=== PATIENT | male | born 1940 | race Caucasian/White ===

== ENCOUNTER 2016-11-09 22:35 | Inpatient (IN) | payer MEDICARE ==
[~2016-11-09] VITALS: Ht 177.8 cm; Wt 42.4 kg
[2016-11-09 22:35] VITALS: BP 117/63
[~2016-11-09 22:35] MED LIST: ALBUTEROL2 PUFFS/17 IN; VICODIN 5/500 T1 TAB PO
--- OUTSIDE RECORDS SUMMARY | 2016-11-09 22:46 | External Medical Summary Rpt ---
Author Author , Organization [employer] Address Unknown Phone Unavailable Purpose Continuity of Care Document - through 2016
--- OUTSIDE RECORDS SUMMARY | 2016-11-09 22:46 | External Medical Summary Rpt ---
Demographics Preferred Language Turkish Marital Status Unknown Muslim Affiliation Unknown Race Unknown Ethnic Group Unknown Author Author , Organization [employer] Address Unknown Phone Unavailable Purpose Continuity of Care Document - through 2016 Immunization No patient found.
--- OUTSIDE RECORDS SUMMARY | 2016-11-09 22:46 | External Medical Summary Rpt ---
Demographics Preferred Language Slovak Marital Status Unknown Episcopalian Affiliation Unknown Race Unknown Ethnic Group Unknown Author Author , Organization [employer] Address Unknown Phone Unavailable Purpose Continuity of Care Document - through 2016 Immunization No patient found.
[2016-11-09] MEDS ORDERED: FOLIC ACID 1MG T1 MG PO (22:47)
--- NOTE | 2016-11-09 23:04 | Emergency Room Report ---
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 " PT'S DAUGHTER RPTS PT "JUST WOKE UP ALL OF A SUDDEN AND COULDN'T SEE." DAUGHTER STS "HE FALLS ALL THE TIME, SOMEONE HAS TO HELP HIM WALK. AND HE'S USING THE BATHROOM IN HIS PANTS." PT WAS SEEN BY DR KINGSLEY 2 WEEKS AGO FOR COLD LIKE SYMPTOMS. PT A & o X 4 UPON ARRIVAL TO ED. PT DENIES PAIN. 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 N Clinical Suspician of Infection? N Mental Status: 1 - Regular (Normal Baseline) Sepsis Risk:Low Sepsis Risk Have you (or family members/close friends) recently traveled outside the [place]? N If Yes, where/when: Have you had exposure to infectious disease within the past month? N TB? Other? Specify: Source patient, RN notes reviewed, family, EMS, old records Exam Limitations no limitations Comment pt with hx of multiple falls with progressive weakness and dec po intake with no fever or rash - he has chronic visual changes rt eye Cardiac Chest Pain Chest pain indicative of cardiac No Timing/Duration this evening Severity moderate ALLERGIES Coded Allergies: Penicillins (Mild, 02/04/16) Home Medications Reported Medications FOLIC ACID (Folic Acid) 1 MG PO DAILY History Medical History General CAD? No Angina: No IN: No Hypertension? No Hyperlipidemia? No CHF? No DVT? No PE? No COPD? No Asthma? No Anemia? No GERD? No Gastric ulcers? No GI Bleed? No Hernia? No Thyroid Problems? No Hypothyroidism? No CVA? No Seizures? No Diabetes? No Renal Insuffiency? No End Stage Renal Disease? No UTI? No Stones? No BPH? No GB Disease: No Nephritic Syndrome? No Asplenia? No Hepatitis? No Sickle Cell Disease? No Arthritis? No Migraines? No Cataracts? No Glaucoma? No MRSA? No HIV? No TB? No Anxiety? No Depression? No Cancer? No More? Yes Additional hx: ETOH DEPENDANCE - BEER Immunization Hx DT/Tetanus > 10 YRS Surgical Hx Previous Surgery?Y CATARACT RIGHT EYE Social History Smoking Hx Smoker: Former Smoker Tobacco: No Packs/day < 1 Pack Alcohol Alcohol: Yes Drugs none Review of Systems All Other Systems Reviewed and Negative Constitutional denies fever Eyes see HPI, vision change, denies drainage ENT denies: ear pain, epistaxis, throat pain. Respiratory denies cough, denies shortness of breath, denies wheezing Cardiovascular denies chest pain, denies syncope Gastrointestinal denies abdominal pain, denies diarrhea, denies vomiting Genitourinary denies: dysuria, frequency, hesitancy, hematuria. Musculoskeletal see HPI, denies back pain, denies joint pain, denies neck pain, other Skin denies rash Psychiatric/Neurological see HPI, denies headache, denies seizure, weakness Physical Exam Vital Signs Vital Signs Date Time Temp Pulse Resp B/P Pulse O2 O2 Flow FiO2 Ox Delivery Rate 11/10 0036 98.2 70 18 112/63 100 11/09 2235 98.2 76 16 117/63 98 - WBC >12,000 or <4,000 or 10% bands? 2 or more SIRS Criteria Met? B/P:112/63 MAP:81 Creatinine >2.0? UA output<0.5ml/kg/hr for 2 hrs? Platelet count >100,000? Lactate >2.0mmol/1? INR >1.2 or PTT > than 60 sec? Evidence of Organ Dysfunction? Provider documented clinical suspician of infection? N Sepsis Criteria Count: 0 Sepsis Risk: Low Sepsis Risk General Appearance no apparent distress Eye Exam Comment chronic changes rt eye and corneal ulcer lt eye Ear, Nose, Throat dry mm Neck non-tender Respiratory Status No: respiratory distress. Lung Sounds bilateral: decreased breath sounds. Cardiovascular regular rate/rhythm, systolic murmur Peripheral Pulses Pulses normal No Gastrointestinal soft Back no skin breakdown Extremities normal inspection, pelvis stable Strength 3 Lower Ext (L), 3 Lower Ext (R), 4 Upper Ext (L), 4 Upper Ext (R) Rectal normal rectal tone, abn prostate Nurse present during exam? Yes Neurologic alert, night manager II-XII nml as tested, no motor/sensory deficits Reflexes Reflexes normal No Mental status normal mood/affect Skin intact Lymphatic no adenopathy Medical Decision Making LABS/Meds/Orders Pt receiving controlled substance in ED? No Results/Orders Laboratory Tests 11/10/16 0031: Urine Color YELLOW, Urine Appearance CLEAR, Urine pH 6.0, Ur Specific [place] 1.015, Urine Protein TRACE H, Urine Ketones 1+ H, Urine Blood TRACE-INTACT, Urine Nitrate NEGATIVE, Urine Bilirubin NEGATIVE, Urine Urobilinogen 1.0, Ur Leukocyte Esterase NEGATIVE, Urine RBC OCC, Urine WBC OCC, Urine Glucose NEGATIVE 11/09/162324: Lactic Acid 0.9 11/09/16 232: Ferritin Pending 11/09/162324: Sodium 114 *L, Potassium 3.4 L, Chloride 82 L, Carbon Dioxide 26, BUN 7, Creatinine 0.8, Estimated Creat Clear 48 L, Estimated GFR (MDRD) 94, Glucose 71 L, Calcium 7.9 L, Total Bilirubin 1.2 H, AST 123 H, ALT 83 H, Alkaline Phosphatase 111, Creatine Kinase 102, CK-MB (CK-2) Rel Index 1.7, CK and CKMB Interp 1.7, Troponin I 0.02, Total Protein 7.1, Albumin 2.8 L, Globulin 4.3 H, Albumin/Globulin Ratio 0.7 L, WBC 2.7 L, RBC 2.39 L, Hgb 8.3 L, Hct 23.8 *L, MCV 99.8 H, RDW 13.7, Plt Count 67 L, MPV 7.4, Gran % 61.9, Gran # 1.7, Total Counted 100, Lymphocytes % 25.4, Monocytes % 6.7, Eosinophils % 5.6, Basophils % 0.5, Neutrophils 67, Band Neutrophils 5, Lymphocytes (Manual) 27, Lymphocytes # 0.7, Monocytes # 0.2, Eosinophils # 0.2, Eosinophils # (Manual) 1, Basophils # 0.0, Platelet Estimate MOD DECREASE, Macrocytosis 1+, Rouleaux 3+, PUBS MCHC 34.7, ESR 63 H, MCH 34.7 H Current Medication Orders Sig/Lorna Start time Last Medication Dose Route Stop Time Status Admin Sodium Chloride 10 ML PRN PRN 11/09 2314 AC IV 11/11 2303 Orders Procedure Date/time Status CROSSMATCH 11/10 UNK Active HEPATITIS B PROFILE 11/10 UNK Active DIET-NOTHING BY MOUTH 11/10 B Active STOOL OCCULT BLOOD 11/10 0051 Active BLOOD BANK REQUEST FOR ADMINISTRATIVE SERVICES MANAGER 11/10 0048 Complete FOLIC ACID (FOLATE, SERUM) 11/10 0037 Active FERRITIN 11/10 0037 Active IRON & TIBC 11/10 0037 Active VITAMIN B12 11/10 003 Active TYPE FOR CROSSMATCH 11/10 0036 Active URINARY CATHETER INSERT 11/10 0032 Active DIFFERENTIAL-WBC 11/[address] SINUS (MAX-FACIAL W/O CONT) 11/[address] HEAD W/O CONTRAST 11/[address] SCAN REQ 11/09 230 Active PELVIS AP ONLY 11/09 2304 Active CHEST-AP VIEW ONLY 11/09 230 Active IV SALINE LOCK 11/09 2304 Active CULTURE, BLOOD 11/09 2304 Active URINALYSIS/COMPLETE 11/09 2304 Complete LACTIC ACID 11/09 2304 Complete SED RATE 11/09 230 Complete COMPLETE METABOLIC PANEL 11/09 2304 Complete CBC WITH AUTO DIFF 11/09 2304 Complete CARDIAC ENZYMES 11/09 230 Complete XRAY/CT/US XRAY/CT/US 1 XRAY chest, pelvis XR interpretation by reviewed by me Xray Results abnormal XRAY/CT/US 2 CT head, sinus CT interpretation by discussed w/radiologist Time results known: 0113 CT Results no fracture seen, abnormal Departure Departure Time of Disposition 011 Disposition Still a Patient Clinical Impression Primary Impression: Hyponatremia Secondary Impressions: Anemia Qualifiers: Anemia type: unspecified type Qualified Code: D64.9 - Anemia, unspecified Leukopenia Qualifiers: Leukopenia type: unspecified Qualified Code: D72.819 - Decreased white blood cell count, unspecified Thrombocytopenia Condition STABLE Referrals Grzegorz Coulter MD discussed with dr coulter ED Critical Care Critical Care Yes Time spent 30-74 min Vital system(s) involved: metabolic I was present at bedside for Coordinating pt's care, Reviewing lab results, Reviewing old records, Discussing pt condition, For re-examinations at 0117
[2016-11-09 23:37] LABS: LYMPH # 0.7 K/mm3 (0.7-4.5); LYMPH % 25.4 % (10-50)
[2016-11-09 23:55] LABS: NEUTROPHILS 67 % (42-76)
[2016-11-10] VITALS (25 sets, daily range): BP systolic 91–124; BP diastolic 42–64
[2016-11-10 00:12] LABS: HEMOGLOBIN 8.3 g/dL (14.1-18.0)
[2016-11-10 00:39] LABS: URINE BLOOD TRACE-INTACT (NEG)
[2016-11-10 00:41] LABS: URINE BILIRUBIN - DIPSTICK NEGATIVE (NEG)
--- OUTSIDE RECORDS SUMMARY | 2016-11-10 01:15 | External Medical Summary Rpt ---
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 Please try again later.
--- OUTSIDE RECORDS SUMMARY | 2016-11-10 01:15 | External Medical Summary Rpt ---
Demographics Preferred Language Sami Marital Status Unknown Faith Affiliation Unknown Race Unknown Ethnic Group Unknown Author Author , Organization [employer] Address Unknown Phone Unavailable Purpose Continuity of Care Document - through 2016 Immunization Unable to retrieve immunization data due to connection failure with Immunization Registry. Please try again later.
[2016-11-10 01:41] LABS: STOOL OCCULT BLOOD NEGATIVE (NEG)
[2016-11-10 04:09] LABS: ABO BLOOD TYPE O; RH BLOOD TYPE POSITIVE
[2016-11-10 04:10] LABS: ANTIHUMAN GLOB CROSSMATCH COMPAT
[2016-11-10 06:58] LABS: LYMPH # 0.6 K/mm3 (0.7-4.5)
--- NOTE | 2016-11-10 07:13 | RADIOLOGY REPORT PS360 ---
CT SINUS (MAX-FACIAL W/O CONT) Ordering Physician: Grzegorz Box MD Patient Age: 76 years: Male HISTORY: PAIN facial pain right pain swelling. Loss of vision TECHNIQUE: Helical CT scanning performed through the facial bones with sagittal coronal reconstructions on CT workstation FINDINGS . There is right periorbital swelling and edema. Either from trauma or possibly a possibly cellulitis evaluate history and clear.. Looking further into history there is been a recent cataract surgery right The soft tissue edema overlies the anterior aspect of right globe. It appears mainly preseptal, although inferior margin there seems to be some slight additional extension of this soft tissue density/inflammation question possible slightly post septal as seen on axial slice sagittal slice 19,-18 correlation with procedure history required. Although the soft tissue density wraps along the inferior margin of the globe, it continues to remain extraconal.Requires ophthalmology evaluation. If symptoms persist or progress, or if there is abnormal drainage consider follow-up postcontrast study.. The venous structure just above the optic nerve is slightly more generous. The superior ophthalmic vein however itself on right appears symmetric. Adjacent right ethmoid air cells appear clear. Lamina papyracea are intact on right. A left there is mild to moderate mucosal thickening at 8 mid left ethmoid air cell reflecting some mild inflammatory changes here. The sphenoid sinus appears normal. Frontal sinuses clear unremarkable. Maxillary sinuses. The right maxillary sinus with only scant 2 mm mucosal thickening inferiorly. Left maxillary sinus with mild mucosal thickening measuring up to 3 mm there is also a dome-shaped area of mucosal thickening likely retention cyst along the lateral wall of measuring over 18 mm at its base and bulging inward 10 mm. Again likely retention cyst . The facial bones intact with no fractures the nasal bone and irregularity most likely reflecting old fracture. Patient nearly edentulous. There is periapical lucency about the remaining lower tooth Prominent degenerative changes right left TMJ yield some erosive changes of both condyles. Early arthritic changes upper C-spine- Primarily Degenerative facet changes. Mastoid air cells well-developed. IACs unremarkable. Middle ear clear. Cerumen at the right external canal note: This study was dictated with a voice-recognition system. There may be typographical error is related to such. If they are significant please notify us for corrections ......... IMPRESSION: 1. Mild diffuse soft tissue swelling overlying the right globe. Right periorbital swelling/edema Although in part may recent cataract surgery, question & suspect possible mild cellulitis.-Mainly preseptal but I would note that there may be an area of slight extension posteriorly septum inferiorly on the sagittal images where this density, & inflammation wraps along the globe inferiorly.. (However this remains extraconal). Sagittal slice 18 , 19 Warrants ophthalmology follow-up. Correlation 2. Mild mucosal thickening left ethmoid air cells. Right ethmoid air cells remain clear with no remarkable inflammatory changes.. Maxillary sinuses. Mild chronic mucosal thickening at inferior maxillary sinuses bilaterally with also moderate size retention cyst lateral left maxillary sinus incidentally noted 3. Mild irregularity of nasal bone most likely reflecting a old fracture, injury
--- NOTE | 2016-11-10 07:20 | PHARMACY CLINIC NOTE ---
Patient Demographics Patient Demographics Admission date: 11/10/16 Date: 11/10/16 Time: 0719 Allergies Coded Allergies: Penicillins (Mild, 02/04/16) HEIGHT- FT: 5 IN: 10.00 K.439 VTE General Information Labs: Laboratory Tests 11/09 2325 Hematology Hgb (14.1 - 18.0 g/dL) 8.3 L Hct (42.0 - 52.0 %) 23.8 *L Plt Count (142 - 424 K/mm3) 67 L Disclaimer The following section includes nursing documentation that has been pulled in for pharmacy review. Patient's VTE score: 2 Patient's VTE Risk: VERY LOW RISK Clinical trial participant? No VTE prophylaxis NQF [id number] VTE prophylaxis ordered? Yes Type of prophylaxis/treatment: ATIF at 0719
[2016-11-10 07:22] LABS: HEMOGLOBIN 7.7 g/dL (14.1-18.0)
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
--- NOTE | 2016-11-10 13:16 | RADIOLOGY REPORT PS360 ---
CT ABD PELVIS W/ CONTRAST Ordering Physician: Helio Espinosa Age: 76 years: Male HISTORY: WEIGHT LOSS,HYPONATREMIA,AND ANEMIA TECHNIQUE: Helical CT scans abdomen and pelvis following 75 cc [id number] 70. Sagittal & coronal reconstructions on CT workstation COMPARISON is made to previous CT abdomen pelvis March 2014 FINDINGS . Very Thin patient\with progressive weight loss since 2014 CT Lower thorax. Lung bases hyperexpanded COPD but lungs clear... Heart normal size. Liver:: diffuse fatty changes. No focal lesions. Gallbladder: generous size but not tense or significant distended.. . No wall thickening. The sac Spleen.: Normal size. Unremarkable. Adrenals: satisfactory. Kidneys normal no obstruction. No calculi and Pancreas.: No mass. No ductal dilatation No retroperitoneal nor pelvic nor mesenteric nor inguinal adenopathy. Minor dilatation lower most abdominal aorta just above the bifurcation where it it measures up to 20 5. Nearly 24 mm AP 20 mm wide. SMA widely patent. Moderate calcified plaque at origin of celiac artery Pelvis.. Diffuse prominent wall thickening urinary bladder . Either reflecting cystitis or bladder wall hypertrophy. Prostate is not particularly enlarged.. Casey catheter in place . Air within the bladder most likely iatrogenic from catheter placement No free fluid at pelvis Large bowel. Prominent stool seen at rectum Generous gas at the transverse colon. Liquid stool from contrast seen at right colon terminal ileum satisfactory. Upper normal wall thickness at cecum and toward right colon may reflect this likely distention. Appendix is not discretely visualized but I see no No evidence of appendicitis\ Small bowel unremarkable Stomach unremarkable. Osseous no lesions Degenerative disc changes multiple levels lumbar spine with facet hypertrophy.. Degenerative changes SI joints and hips IMPRESSION: 1. No acute findings in the abdomen or pelvis. . No mass nor adenopathy abdomen or pelvis. 2. Prominent diffuse wall thickening of the bladder. Air/gas in the bladder likely related to Casey catheter placement. . 2. Other observations: ..Upper normal wall thickness cecum & right colon, however may reflect lack of distention ...Patient Very thin, with progressive weight loss evident versus 2014 CT ...Diffuse. Fatty changes liver .. Generous stool rectum ... Mild dilatation lower abdominal aorta measures up to 2.4 cm.
--- NOTE | 2016-11-10 14:12 | RADIOLOGY REPORT PS360 ---
CT CHEST W/ CONTRAST Ordering Physician: Grzegorz Box MD Patient Age: 76 years: Male HISTORY: WEIGHT LOSS,HYPONATREMIA,AND ANEMIA TECHNIQUE: COMPARISON made to previous CT chest March 2014 FINDINGS thin patient progressive weight loss since 2013.. No axillary adenopathy. Hyperexpansion. COPD residual emphysematous changes. Lung aguila No mass or significant pulmonary nodule is seen within the either right or left lung There is slight additional interstitial coarsening which could reflect some mild postinflammatory changes versus minimal, subtle resolving infiltrate at the right infrahilar region... No pleural lesion or mass. Mediastinum. Scattered small reactive nodes but No significant mediastinal adenopathy. No mediastinal mass. Heart normal size. IMPRESSION: Prominent COPD. Emphysematous changes again evident. No lung mass or left lung lesion. No mediastinal mass or significant adenopathy. No pleural mass or lesion. Subtle additional interstitial coarsening right infrahilar region-most likely reflects mild postinflammatory changes which have developed since 2013. Favor chronic changes, Less likely resolving minimal recent infiltrate... Thin patient.
--- NOTE | 2016-11-10 15:24 | RADIOLOGY REPORT PS360 ---
CHEST-AP VIEW ONLY COMPARISON: PA and lateral chest 04/03/2014 HISTORY: Shortness of breath TECHNIQUE: AP upright chest FINDINGS: There is moderate hyperexpansion of the lung aguila. See no definite pneumonic infiltrate. Cardiac size is normal and the vascularity is normal. IMPRESSION: Moderate COPD, no acute chest pathology noted
--- NOTE | 2016-11-10 16:42 | RADIOLOGY REPORT PS360 ---
PELVIS AP ONLY COMPARISON: AP pelvis 06/28/2007 HISTORY: Pelvic pain TECHNIQUE: AP pelvis FINDINGS: The iliac bones and pubic bones appear intact. There is somewhat hazy opacity in the central pelvis probably due to urinary bladder distention. Is mild asymmetric joint space narrowing of the right hip. Both hips are normally articulated with no evidence of fracture. The SI joints and symphysis pubis per normal. IMPRESSION: Mild osteoarthritis right hip, AP pelvis negative for fracture
[2016-11-10 20:25] LABS: HEMOGLOBIN 10.1 g/dL (14.1-18.0)
[2016-11-11 04:11] VITALS: BP 128/60
[2016-11-11 06:32] LABS: HEMOGLOBIN 9.9 g/dL (14.1-18.0); LYMPH # 0.6 K/mm3 (0.7-4.5); LYMPH % 24.7 % (10-50)
[2016-11-11 07:42] VITALS: BP 100/55
[2016-11-11 07:44] LABS: HBsAg Screen Negative (Negative); Hep A Ab, IgM Negative (Negative); Hep B Core Ab, IgM Negative (Negative); Hep C Virus Ab <0.1 (0.0-0.9)
[2016-11-11 07:53] LABS: NEUTROPHILS 61 % (42-76)
--- NOTE | 2016-11-11 08:17 | ACUTE CARE PROGRESS NOTE (QUA) ---
Progress Notes Subjective Date 11/11/16 Time 0730 Note Patient is resting in bed. He has no complaints of pain or discomfort this morning. His significant other is at bedside. He is consuming very little of his meals; however he is drinking some ensure. Alert and oriented 3. He is thin and emaciated. Rate and rhythm regular. Pulses 2+. No lower extremity edema. Lung sounds clear and equal throughout. Abdomen is soft and extremely thin with no tenderness and normoactive bowel sounds Patient/family reports: feeling better Nursing reports: no complaints Objective Findings Last VS-Temp:98.5 B/P:100/55 Pulse:76 Resp:20 SaO2:97 ROOM AIR Last weight lbs:93 oz:9 K.439 Method:Bed Scales Reviewed: medications, vital signs, lab results, radiology report Assessment/Plan Problem List 1. Hyponatremia Assessment/Plan: Sodium improved at 123. Continue normal saline. Recheck BMP in the a.m. 2. Anemia Assessment/Plan: Anemia has improved with transfusion, H/H 9.03/26 this morning. Qualifiers: Anemia type: unspecified type Qualified Code: D64.9 - Anemia, unspecified 3. Leukopenia Assessment/Plan: White count noted at 2.3 Qualifiers: Leukopenia type: unspecified Qualified Code: D72.819 - Decreased white blood cell count, unspecified 4. Thrombocytopenia Assessment/Plan: Platelets noted at 52 5. Alcohol abuse Assessment/Plan: Patient's significant anemia, leukopenia, thrombocytopenia, and electrolyte abnormalities are likely related to his chronic alcoholism with severe thiamine deficiency. Continue thiamine and multivitamin replacement. Continue ensure with meals. Plan is to discharge home after resolution of electrolyte disturbance under the care of his daughter. Patient condition Improving Plan: continue current care (see above) This inpt stay is expected to cross 2 MNs from start of care Yes at 0817
[2016-11-11 08:50] LABS: PSA, Free 0.6 ng/mL; Prostate Specific Ag 1.9 ng/mL (0.0-4.0)
[2016-11-11 08:53] VITALS: BP 100/55
[2016-11-11 09:37] LABS: Folate (Folic Acid) 4.8 ng/mL (>3.0)
--- NOTE | 2016-11-11 10:15 | CONSULT NOTE ---
Pharmacokinetic Consult Date of consult: 11/11/16 Time of consult: 1013 Referring provider: DR. JOHNSON Reason for consult: VANCOMYCIN DOSING Allergies: Coded Allergies: Penicillins (Mild, 02/04/16) Home Medications: Reported Medications FOLIC ACID (Folic Acid) 1 MG PO DAILY Height (feet): 5 Height (inches): 10.00 Medical History: CAD? No Angina: No [place]: No Hypertension? No Hyperlipidemia? No CHF? No DVT? No PE? No COPD? No Asthma? No Anemia? No GERD? No Gastric ulcers? No GI Bleed? No Hernia? No Thyroid Problems? No Hypothyroidism? No CVA? No Seizures? No Diabetes? No Renal Insuffiency? No UTI? No Stones? No BPH? No GB Disease: No Nephritic Syndrome? No Asplenia? No Hepatitis? No Sickle Cell Disease? No Arthritis? No Migraines? No Cataracts? Yes Glaucoma? No MRSA? No HIV? No TB? No Anxiety? No Depression? No Cancer? No More? Yes Additional hx: ETOH DEPENDANCE - BEER Labs: Laboratory Tests 11/11/16 0620: Sodium 123 L, Potassium 3.2 L, Chloride 90 L, Carbon Dioxide 28, BUN 5 L, Creatinine 0.6 L, Estimated Creat Clear 63, Estimated GFR (MDRD) 131, Glucose 99, Calcium 7.6 L, Total Bilirubin 1.2 H, AST 83 H, ALT 58, Alkaline Phosphatase 86, Total Protein 5.7 L, Albumin 2.3 L, Globulin 3.4 H, Albumin/ Globulin Ratio 0.7 L, WBC 2.3 L, RBC 2.99 L, Hgb 9.9 L, Hct 28.1 L, MCV 94.3, RDW 15.6, Plt Count 52 L, MPV 6.8 L, Gran % 62.0, Gran # 1.5, Total Counted 100, Lymphocytes % 24.7, Monocytes % 9.8 H, Eosinophils % 3.1, Basophils % 0.5, Neutrophils 61, Lymphocytes (Manual) 24, Lymphocytes # 0.6 L, Monocytes (Manual) 9, Monocytes # 0.2, Eosinophils # 0.1, Eosinophils # (Manual) 5 H, Basophils # 0.0, Atypical Lymphocytes 1, Platelet Estimate MARKED DECREASE , Hypochromasia 1+, PUBS MCHC 35.1, MCH 33.1 H 11/10/16 1943: Hgb 10.1 L, Hct 28.8 L Microbiology 11/11 0644 EYE: Eye Culture - ORD Plan: BASED ON PATIENT'S FACTORS, RECOMMEND STARTING WITH VANCOMYCIN 750 MG Q24H AT THIS TIME. PHARMACY WILL FOLLOW DAILY AND ADJUST APPROPRIATE. CALEB BELL, PHARMD at 1019
[2016-11-11 15:39] VITALS: BP 119/67
[2016-11-11 19:23] VITALS: BP 96/59
[2016-11-11 21:03] VITALS: BP 96/59
[2016-11-12 04:00] VITALS: BP 106/50
--- NOTE | 2016-11-12 07:45 | ACUTE CARE PROGRESS NOTE (QUA) ---
Progress Notes Subjective Date 11/12/16 Time 0743 Note Patient is more alert than the last couple of days. Has eaten a fairly good amount of breakfast. He especially likes Jell-O because "Jell-O is good for you." Anterior lung aguila are clear, heart rate regular. Patient to move all extremities. Casey catheter draining clear yellow urine. Blood culture results noted. Objective Findings Last VS-Temp:98.5 B/P:106/50 Pulse:69 Resp:14 SaO2:96 ROOM AIR Last weight lbs:93 oz:9 K.439 Method:Bed Scales Assessment/Plan Problem List 1. Hyponatremia 2. Anemia Qualifiers: Anemia type: unspecified type Qualified Code: D64.9 - Anemia, unspecified 3. Leukopenia Qualifiers: Leukopenia type: unspecified Qualified Code: D72.819 - Decreased white blood cell count, unspecified 4. Thrombocytopenia 5. Alcohol abuse 6. Bacteremia due to Staphylococcus 7. Severe protein-calorie malnutrition Patient condition Improving, patient will require PICC line. Probable swing bed/ extended care placement for treatment of the bacteremia. Overall other issues are improving. Hematology consultation for his pancytopenia. This inpt stay is expected to cross 2 MNs from start of care Yes at 0745
[2016-11-12 08:12] VITALS: BP 111/58
[2016-11-12 11:59] VITALS: BP 111/58
--- NOTE | 2016-11-12 12:15 | RADIOLOGY REPORT PS360 ---
CHEST PORTABLE-PICC PLACEMENT CLINICAL INDICATION: PICC LINE INSERTION ORDERING PHYSICIAN: Grzegorz Box MD PATIENT AGE: 76 years COMPARISON: 11/09/2016 FINDINGS: Interval insertion of left upper extremity PICC line with the tip in region of the superior vena cava. Unremarkable cardiovascular structures. There is slight increased density in the left lung base probably related to atelectatic change. IMPRESSION: Status post PICC line placement with good position of the tip
--- NOTE | 2016-11-12 14:40 | RADIOLOGY REPORT PS360 ---
CT HEAD WITHOUT CONTRAST CT BONE WINDOWS included ORDERING PHYSICIAN : Grzegorz Box MD PATIENT AGE: 76 years GENDER: Male PROCEDURE: Routine axial images head with brain & bone windows HISTORY: PAIN 76-year-old with right I pain for age COMPARISON: No prior head CT available FINDINGS: No acute intracranial findings. Diffuse cerebral atrophy age appropriate. Mild dilatation of the lateral ventricles reflecting the cerebral atrophy. Probable minor chronic small vessel deep white matter changes. No hemorrhage. No mass effect or mass lesion. No subdural nor extra-axial collection. The posterior fossa appear satisfactory and unremarkable. : The skull is intact. Periorbital swelling is noted. Sinuses paranasal will be discussed in separate report . Mastoid air cells, middle ear & IACs are unremarkable. IMPRESSION: No acute intracranial findings. Diffuse Cerebral atrophy. . Mild atrophy cerebellum as well Soft tissue swelling overlying the right globe- may reflect the recent cataract surgery but does raise concern regarding possible developing inflammatory process here. Clinical correlation required. See the CT facial bones study and report from same day.
--- NOTE | 2016-11-12 15:06 | CONSULT NOTE ---
Oncology Clinic F/Up Visit History of present illness: Was asked to see this 76-year-old man who has had a contact with the medical profession for years. Apparently he had a cataract removed a month ago. Her having a hard time finding the records to back this up his significant other states that it was about a month ago. She was admitted because of hyponatremia hypopotassemia and severe anemia. He is a drinker of at least 1-2 sixpacks of beer a day. Apparently over the last several weeks he has had very little to eat or drink other than his beer. On admission his potassium was 3.3 sodium 117 chloride of 83. His hematocrit was 22 with an MCV of 100. He was also noted to have a low white count and a platelet count of 60,000. A CT scan of the orbit of the eye reveals mild diffuse soft tissue swelling in the RIGHT global is also periorbital swelling and edema. Difficult to stated this is related to the surgery that he was supposed to have had. Home medications: Reported Medications FOLIC ACID (Folic Acid) 1 MG PO DAILY Allergies: Coded Allergies: Penicillins (Mild, 02/04/16) Vital signs/Labs: Weight -LB:93 OZ:9 K.439 Method:Bed Scales Height -FT:5 IN:10 CM:177.80 BMI:13.4 Vital Signs Date Time Temp Pulse Resp B/P Pulse O2 O2 Flow FiO2 Ox Delivery Rate 11/12 1159 98.5 67 20 111/58 99 11/12 0812 98.5 67 20 111/58 99 ROOM AIR 11/12 0400 98.5 69 14 106/50 96 ROOM AIR 11/11 2103 98.3 72 18 96/59 98 11/11 1923 98.3 72 18 96/59 98 ROOM AIR 11/11 1539 99.0 72 20 119/67 96 ROOM AIR Laboratory Tests 11/12/16 0630: Sodium 125 L, Potassium 3.1 L, Chloride 94 L, Carbon Dioxide 29, BUN 3 L, Creatinine 0.6 L, Estimated Creat Clear 63, Estimated GFR (MDRD) 131, Glucose 97, Calcium 7.6 L 11/11/16 0620: Sodium 123 L, Potassium 3.2 L, Chloride 90 L, Carbon Dioxide 28, BUN 5 L, Creatinine 0.6 L, Estimated Creat Clear 63, Estimated GFR (MDRD) 131, Glucose 99, Calcium 7.6 L, Total Bilirubin 1.2 H, AST 83 H, ALT 58, Alkaline Phosphatase 86, Total Protein 5.7 L, Albumin 2.3 L, Globulin 3.4 H, Albumin/ Globulin Ratio 0.7 L, WBC 2.3 L, RBC 2.99 L, Hgb 9.9 L, Hct 28.1 L, MCV 94.3, RDW 15.6, Plt Count 52 L, MPV 6.8 L, Gran % 62.0, Gran # 1.5, Total Counted 100, Lymphocytes % 24.7, Monocytes % 9.8 H, Eosinophils % 3.1, Basophils % 0.5, Neutrophils 61, Lymphocytes (Manual) 24, Lymphocytes # 0.6 L, Monocytes (Manual) 9, Monocytes # 0.2, Eosinophils # 0.1, Eosinophils # (Manual) 5 H, Basophils # 0.0, Atypical Lymphocytes 1, Platelet Estimate MARKED DECREASE , Hypochromasia 1+, PUBS MCHC 35.1, MCH 33.1 H 11/10/16 194: Hgb 10.1 L, Hct 28.8 L 11/10/16 0946: [facility] [place] Test Units BLOOD UNIT RELEASE 11/10/16 0625: Sodium 117 L, Potassium 3.3 L, Chloride 83 L, Carbon Dioxide 24, BUN 6 L, Creatinine 0.7 L, Estimated Creat Clear 54, Estimated GFR (MDRD) 110, Glucose 64 L, Calcium 7.9 L, WBC 2.4 L, RBC 2.24 L, Hgb 7.7 *L, Hct 22.4 *L, MCV 100.4 H, RDW 13.6, Plt Count 60 L, MPV 7.4, Gran % 63.7, Gran # 1.5, Lymphocytes % 24.0, Monocytes % 7.0, Eosinophils % 4.9, Basophils % 0.4, Lymphocytes # 0.6 L, Monocytes # 0.2, Eosinophils # 0.1, Basophils # 0.0, PUBS MCHC 34.1, MCH 34.2 H 11/10/1699: Iron (send out) 102, TIBC 122 L, % Saturation 84 H, Unsaturated IBC 20 L, Vitamin B12 1229 H, Folate 4.8 11/10/1699: Ferritin 2801 H, TSH 3.40, Thyroxine (T4) 5.1 11/10/16 0100: Free PSA 0.60, % Free PSA Calc 31.6, Total PSA 1.9, Antibody Screen NEGATIVE, Miscellaneous Test POSITIVE, Hepatitis A IgM Ab Negative, Hep Bs Antigen Negative, Hep B Core IgM Ab Negative, Hepatitis C Antibody <0.1 11/10/16 0048: Stool Occult Blood NEGATIVE 11/10/16 0031: Urine Color YELLOW, Urine Appearance CLEAR, Urine pH 6.0, Ur [place] 1.015, Urine Protein TRACE H, Urine Ketones 1+ H, Urine Blood TRACE-INTACT, Urine Nitrate NEGATIVE, Urine Bilirubin NEGATIVE, Urine Urobilinogen 1.0, Ur Leukocyte Esterase NEGATIVE, Urine RBC OCC, Urine WBC OCC, Urine Glucose NEGATIVE 11/09/162324: Lactic Acid 0.9 11/09/162324: Sodium 114 *L, Potassium 3.4 L, Chloride 82 L, Carbon Dioxide 26, BUN 7, Creatinine 0.8, Estimated Creat Clear 48 L, Estimated GFR (MDRD) 94, Glucose 71 L, Calcium 7.9 L, Total Bilirubin 1.2 H, AST 123 H, ALT 83 H, Alkaline Phosphatase 111, Creatine Kinase 102, CK-MB (CK-2) Rel Index 1.7, CK and CKMB Interp 1.7, Troponin I 0.02, Total Protein 7.1, Albumin 2.8 L, Globulin 4.3 H, Albumin/Globulin Ratio 0.7 L, WBC 2.7 L, RBC 2.39 L, Hgb 8.3 L, Hct 23.8 *L, MCV 99.8 H, RDW 13.7, Plt Count 67 L, MPV 7.4, Gran % 61.9, Gran # 1.7, Total Counted 100, Lymphocytes % 25.4, Monocytes % 6.7, Eosinophils % 5.6, Basophils % 0.5, Neutrophils 67, Band Neutrophils 5, Lymphocytes (Manual) 27, Lymphocytes # 0.7, Monocytes # 0.2, Eosinophils # 0.2, Eosinophils # (Manual) 1, Basophils # 0.0, Platelet Estimate MOD DECREASE, Macrocytosis 1+, Rouleaux 3+, PUBS MCHC 34.7, ESR 63 H, MCH 34.7 H Microbiology Date/Time Procedure - Status Source Growth 11/11 629 Eye Culture - RECD EYE 11/09 2324 Anaerobic Blood Culture - RES BLOOD 11/09 232 Aerobic Blood Culture - RES BLOOD 11/09 232 Anaerobic Blood Culture - RES BLOOD 11/09 232 Aerobic Blood Culture - RES BLOOD Exam: General appearance: try to talk to the patient and he refused to talk to me he would just jose angel sleepiness. attempted to examine him but I could get no more than just the superficial look at him. Assessment Discussion/Summary: I believe his hyponatremia should resolve on its own is when he starts re- radiating with normal fluids uther than beer. As for his profound anemia and also likely cause will be called. Over the same picture and be seen in myelodysplasia. Time will tell which one is which I did speak to his caregiver about a bone marrow biopsy and she said he would not stand for such a thing. I think we can evaluate him in clinic as soon as he gets discharged protect that if he stops drinking his MCV will come down and he will have correction in his platelet count and white count. If it does not return towards normal then the diagnosis of myeloma dysplasia should be then investigated. at 1502
[2016-11-12 16:03] VITALS: BP 103/57
[2016-11-12 19:14] VITALS: BP 98/54
[2016-11-12 21:19] VITALS: BP 98/54
[2016-11-13 03:33] VITALS: BP 126/77
[2016-11-13 08:17] VITALS: BP 133/75
--- NOTE | 2016-11-13 08:20 | PHARMACY CLINIC NOTE ---
Patient Demographics Patient Demographics Admission date: 11/13/16 Date: 11/13/16 Time: 817 Allergies Coded Allergies: Penicillins (Mild, 02/04/16) HEIGHT- FT: 5 IN: 10.00 VTE General Information Disclaimer The following section includes nursing documentation that has been pulled in for pharmacy review. Clinical trial participant? No VTE prophylaxis NQF [id number] VTE prophylaxis ordered? Yes Type of prophylaxis/treatment: ATIF at 0819
[2016-11-13] MEDS ORDERED: NOMEDS XX (08:29)
[2016-11-13 09:33] VITALS: BP 133/75
--- NOTE | 2016-11-13 10:00 | CONSULT NOTE ---
Pharmacokinetic Consult Date of consult: 11/13/16 Time of consult: 957 Referring provider: DR. JOHNSON Reason for consult: VANCOMYCIN TROUGH LEVEL AND DOSE CHANGE Allergies: Coded Allergies: Penicillins (Mild, 02/04/16) Home Medications: Reported Medications No Home Medications (NO HOME MEDICATIONS) 1 EACH XX ONCE Height (feet): 5 Height (inches): 10.00 Medical History: CAD? No Angina: No [place]: No Hypertension? No Hyperlipidemia? No CHF? No DVT? No PE? No COPD? No Asthma? No Anemia? No GERD? No Gastric ulcers? No GI Bleed? No Hernia? No Thyroid Problems? No Hypothyroidism? No CVA? No Seizures? No Diabetes? No Renal Insuffiency? No UTI? No Stones? No BPH? No GB Disease: No Nephritic Syndrome? No Asplenia? No Hepatitis? No Sickle Cell Disease? No Arthritis? No Migraines? No Cataracts? Yes Glaucoma? No MRSA? No HIV? No TB? No Anxiety? No Depression? No Cancer? No More? Yes Additional hx: ETOH DEPENDANCE - BEER Labs: Laboratory Tests 11/13/16 0930: Vancomycin Trough 2.8 L Plan: BASED ON PATIENT'S VANCOMYCIN TROUGH LEVEL OF 2.8 MCG/ML THIS AM, RECOMMEND INCREASING DOSE OF VANCOMYCIN TO 1000 MG Q12H AT THIS TIME. PHARMACY WILL OBTAIN VANCOMYCIN TROUGH LEVEL PRIOR TO DOSE IN THE AM. PHARMACY WILL FOLLOW DAILY AND ADJUST APPROPRIATE. CALEB BELL PHARMD at 1000
--- NOTE | 2016-11-13 14:53 | ACUTE CARE PROGRESS NOTE (QUA) ---
Progress Notes Subjective Date 11/13/16 Time 0745 Note Patient is resting in bed, with [id number] feeding him breakfast. He denies pain or discomfort. Oral intake has improved some since admission. PICC line was placed yesterday, which he tolerated well. Alert and oriented x3. Sclera erythematous with cloudy, scarring bilateral corneas. Purulent drainage, unable to see from either eye. LS clear and equal throughout. Abdomen soft and non-tender. Heart rate and rhythm regular, no edema, pulses 2+. Patient/family reports: feeling better Nursing reports: no complaints Objective Findings Last VS-Temp:97.6 B/P:133/75 Pulse:84 Resp:20 SaO2:98 ROOM AIR Last weight lbs:93 oz:9 K.439 Method:Bed Scales Reviewed: medications, vital signs, lab results, radiology report Assessment/Plan Problem List 1. Hyponatremia Assessment/Plan: Improving. Na 125 today. Will continue normal saline infusions and repeat BMP in the am. 2. Anemia Assessment/Plan: Improved. H/H 9.9/28.1 on 11/11. Will repeat CBC in the am. Qualifiers: Anemia type: unspecified type Qualified Code: D64.9 - Anemia, unspecified 3. Leukopenia Assessment/Plan: Dr. Spicer consulted yesterday who agrees pancytopenia is likely related to bone marrow suppression from chronic ETOH use. Qualifiers: Leukopenia type: unspecified Qualified Code: D72.819 - Decreased white blood cell count, unspecified 4. Thrombocytopenia Assessment/Plan: See above 5. Alcohol abuse Assessment/Plan: Continue thiamine. 6. Bacteremia due to Staphylococcus 7. Severe protein-calorie malnutrition Assessment/Plan: Boost with meals. Continue to assist with feedings. 8. Vision loss, bilateral Assessment/Plan: Vision loss is the result of infection with possible abscess behind right eye. Offered transfer to [facility] for ophthalmology consult; although I do not believe they will do anything different in his care. Continue IV antibiotics. Continue erythromycin ophthalmic ointment. Add viroptic for herpes coverage. Will consult Dr. Dean. Patient condition Improving This inpt stay is expected to cross 2 MNs from start of care Yes at 0107
--- NOTE | 2016-11-13 14:53 | ACUTE CARE PROGRESS NOTE (QUA) ---
Progress Notes Subjective Date 11/13/16 Time 0745 Note Patient is resting in bed, with [id number] feeding him breakfast. He denies pain or discomfort. Oral intake has improved some since admission. PICC line was placed yesterday, which he tolerated well. Alert and oriented x3. Sclera erythematous with cloudy, scarring bilateral corneas. Purulent drainage, unable to see from either eye. LS clear and equal throughout. Abdomen soft and non-tender. Heart rate and rhythm regular, no edema, pulses 2+. Patient/family reports: feeling better Nursing reports: no complaints Objective Findings Last VS-Temp:97.6 B/P:133/75 Pulse:84 Resp:20 SaO2:98 ROOM AIR Last weight lbs:93 oz:9 K.439 Method:Bed Scales Reviewed: medications, vital signs, lab results, radiology report Assessment/Plan Problem List 1. Hyponatremia Assessment/Plan: Improving. Na 125 today. Will continue normal saline infusions and repeat BMP in the am. 2. Anemia Assessment/Plan: Improved. H/H 9.9/28.1 on 11/11. Will repeat CBC in the am. Qualifiers: Anemia type: unspecified type Qualified Code: D64.9 - Anemia, unspecified 3. Leukopenia Assessment/Plan: Dr. Spicer consulted yesterday who agrees pancytopenia is likely related to bone marrow suppression from chronic ETOH use. Qualifiers: Leukopenia type: unspecified Qualified Code: D72.819 - Decreased white blood cell count, unspecified 4. Thrombocytopenia Assessment/Plan: See above 5. Alcohol abuse Assessment/Plan: Continue thiamine. 6. Bacteremia due to Staphylococcus 7. Severe protein-calorie malnutrition Assessment/Plan: Boost with meals. Continue to assist with feedings. 8. Vision loss, bilateral Assessment/Plan: Vision loss is the result of infection with possible abscess behind right eye. Offered transfer to [facility] for ophthalmology consult; although I do not believe they will do anything different in his care. Continue IV antibiotics. Continue erythromycin ophthalmic ointment. Add viroptic for herpes coverage. Will consult Dr. Dean. Patient condition Improving This inpt stay is expected to cross 2 MNs from start of care Yes at 3962
[2016-11-13 16:14] VITALS: BP 116/69
[2016-11-13 19:41] VITALS: BP 140/72
[2016-11-13 20:10] VITALS: BP 140/72
[2016-11-14 03:48] VITALS: BP 100/54
[2016-11-14 06:41] LABS: LYMPH # 0.9 K/mm3 (0.7-4.5)
[2016-11-14 06:42] LABS: HEMOGLOBIN 8.6 g/dL (14.1-18.0)
[2016-11-14 07:28] VITALS: BP 122/69
--- NOTE | 2016-11-14 07:49 | ACUTE CARE PROGRESS NOTE (QUA) ---
Progress Notes Subjective Date 11/14/16 Time 0748 Note Patient is alert, oriented 2. His eye drainage is much improved although the scarring over his cornea is still present and patient reports complete loss of visual acuity. Lungs are clear, heart rate regular, abdomen soft, nutritional/hydration status slowly improving. Objective Findings Last VS-Temp:98.5 B/P:122/69 Pulse:74 Resp:20 SaO2:97 ROOM AIR Last weight lbs:93 oz:9 K.439 Method:Bed Scales Assessment/Plan Problem List 1. Hyponatremia 2. Anemia Qualifiers: Anemia type: unspecified type Qualified Code: D64.9 - Anemia, unspecified 3. Leukopenia Qualifiers: Leukopenia type: unspecified Qualified Code: D72.819 - Decreased white blood cell count, unspecified 4. Thrombocytopenia 5. Alcohol abuse 6. Bacteremia due to Staphylococcus 7. Severe protein-calorie malnutrition 8. Vision loss, bilateral 9. Acute infective conjunctivitis Patient condition Improving, await cultures. Continue erythromycin ointment. Add antiviral drops. Also add prednisolone drops to help with inflammation. I am not optimistic about his vision recovering. However overall his infectious status is improving. Will need long-term antibiotics for his staph bloodstream infection. This inpt stay is expected to cross 2 MNs from start of care Yes at 0773
[2016-11-14 10:02] VITALS: BP 122/69
--- NOTE | 2016-11-14 10:43 | CONSULT NOTE ---
Pharmacokinetic Consult Date of consult: 11/14/16 Time of consult: 1042 Referring provider: DR. JOHNSON Reason for consult: VANCOMYCIN TROUGH LEVEL Allergies: Coded Allergies: Penicillins (Mild, 02/04/16) Home Medications: Reported Medications No Home Medications (NO HOME MEDICATIONS) 1 EACH XX ONCE Height (feet): 5 Height (inches): 10.00 Medical History: CAD? No Angina: No [place]: No Hypertension? No Hyperlipidemia? No CHF? No DVT? No PE? No COPD? No Asthma? No Anemia? No GERD? No Gastric ulcers? No GI Bleed? No Hernia? No Thyroid Problems? No Hypothyroidism? No CVA? No Seizures? No Diabetes? No Renal Insuffiency? No UTI? No Stones? No BPH? No GB Disease: No Nephritic Syndrome? No Asplenia? No Hepatitis? No Sickle Cell Disease? No Arthritis? No Migraines? No Cataracts? Yes Glaucoma? No MRSA? No HIV? No TB? No Anxiety? No Depression? No Cancer? No More? Yes Additional hx: ETOH DEPENDANCE - BEER Labs: Laboratory Tests 11/14/16 0950: Vancomycin Trough 10.5 H 11/14/16 0610: Sodium 130 L, Potassium 3.8, Chloride 98, Carbon Dioxide 31, BUN 9, Creatinine 0.6 L, Estimated Creat Clear 63, Estimated GFR (MDRD) 131, Glucose 102, Calcium 7.7 L, WBC 7.6, RBC 2.63 L, Hgb 8.6 L, Hct 25.8 L, MCV 98.1 H, RDW 15.2, Plt Count 97 L, MPV 6.9 L, Gran % 82.4 H, Gran # 6.3, Lymphocytes % 12.0, Monocytes % 5.5, Eosinophils % 0.1, Basophils % 0.0 L, Lymphocytes # 0.9, Monocytes # 0.4, Eosinophils # 0.0, Basophils # 0.0, PUBS MCHC 33.4, MCH 32.7 H Problem List: 1. Bacteremia due to Staphylococcus Plan: BASED ON VANCOMYCIN TROUGH LEVEL AND PATIENT FACTORS, RECOMMEND CONTINUING VANCOMYCIN 1 GM IV Q12H. PHARMACY WILL CONTINUE TO MONITOR AND ADJUST APPROPRIATE. at 1048
[2016-11-14 11:34] VITALS: BP 122/69
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
== END 2016-11-14 11:47 | disposition swing bed (61) | DRG 811 ==
LOC: ER 22:35 → 2ND 11-10 01:11
PROVIDERS: Emergency Medicine; Internal Medicine Adolescent Medicine
PROC: 05HC33Z Insertion of Infusion Device into Left Basilic Vein, Percutaneous Approach (ICD-10-PCS; principal; 2016-11-12)
DX: D64.9 Anemia, unspecified (principal); E43 Unspecified severe protein-calorie malnutrition; R78.81 Bacteremia; D69.6 Thrombocytopenia, unspecified; E87.1 Hypo-osmolality and hyponatremia; B95.7 Other staphylococcus as the cause of diseases classified elsewhere; Z68.1 Body mass index [BMI] 19.9 or less, adult; D61.818 Other pancytopenia; Z91.81 History of falling; H10.023 Other mucopurulent conjunctivitis, bilateral
CPT/HCPCS: C1751; G0328; J3370; P9016; Q9967

== ENCOUNTER 2016-11-14 08:32 | Inpatient (IN) | payer MEDICARE ==
[~2016-11-14] VITALS: Ht 177.8 cm; Wt 53.7 kg
[~2016-11-14 08:32] MED LIST changes: +FOLIC ACID 1MG T1 MG PO; +NOMEDS XX
--- NOTE | 2016-11-14 10:47 | PHARMACY CLINIC NOTE ---
Patient Demographics Patient Demographics Admission date: 11/14/16 Date: 11/14/16 Time: 1047 Allergies Coded Allergies: Penicillins (Mild, 02/04/16) HEIGHT- FT: 5 IN: 10.00 VTE General Information Disclaimer The following section includes nursing documentation that has been pulled in for pharmacy review. VTE prophylaxis NQF [id number] VTE prophylaxis ordered? Yes Type of prophylaxis/treatment: ATIF at 1044
[2016-11-14 12:55] VITALS: BP 117/74
[2016-11-14 14:01] VITALS: BP 117/74
[2016-11-14 20:01] VITALS: BP 140/70
[2016-11-15 07:21] VITALS: BP 137/76
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
[2016-11-15 09:35] VITALS: BP 137/76
[2016-11-15 19:59] VITALS: BP 140/78
[2016-11-16 07:49] VITALS: BP 137/73
[2016-11-16 09:03] VITALS: BP 137/73
[2016-11-16 20:22] VITALS: BP 138/71
[2016-11-17 05:58] LABS: LYMPH # 0.9 K/mm3 (0.7-4.5); LYMPH % 18.5 % (10-50)
[2016-11-17 05:59] LABS: HEMOGLOBIN 9.8 g/dL (14.1-18.0)
[2016-11-17 08:20] VITALS: BP 144/91
[2016-11-17 08:22] VITALS: BP 144/91
--- NOTE | 2016-11-17 10:16 | CONSULT NOTE ---
Pharmacokinetic Consult Date of consult: 11/17/16 Time of consult: 1014 Referring provider: DR. JOHNSON Reason for consult: VANCOMYCIN TROUGH LEVEL Allergies: Coded Allergies: Penicillins (Mild, 02/04/16) Home Medications: Reported Medications No Home Medications (NO HOME MEDICATIONS) 1 EACH XX ONCE Height (feet): 5 Height (inches): 10.00 Medical History: CAD? No Angina: No [place]: No Hypertension? No Hyperlipidemia? No CHF? No DVT? No PE? No COPD? No Asthma? No Anemia? No GERD? No Gastric ulcers? No GI Bleed? No Hernia? No Thyroid Problems? No Hypothyroidism? No CVA? No Seizures? No Diabetes? No Renal Insuffiency? No UTI? No Stones? No BPH? No GB Disease: No Nephritic Syndrome? No Asplenia? No Hepatitis? No Sickle Cell Disease? No Arthritis? No Migraines? No Cataracts? Yes Glaucoma? No MRSA? No HIV? No TB? No Anxiety? No Depression? No Cancer? No More? Yes Additional hx: ETOH DEPENDANCE - BEER Labs: Laboratory Tests 11/17/16 0930: Vancomycin Trough 16.0 H 11/17/16 0535: Sodium 128 L, Potassium 4.6, Chloride 98, Carbon Dioxide 28, BUN 7, Creatinine 0.6 L, Estimated Creat Clear 80, Estimated GFR (MDRD) 131, Glucose 86, Calcium 7.9 L, WBC 5.1, RBC 2.98 L, Hgb 9.8 L, Hct 29.8 L, MCV 100.1 H, RDW 15.6, Plt Count 125 L, MPV 6.7 L, Gran % 67.9, Gran # 3.5, Lymphocytes % 18.5, Monocytes % 6.2, Eosinophils % 6.6, Basophils % 0.8, Lymphocytes # 0.9, Monocytes # 0.3, Eosinophils # 0.3, Basophils # 0.0, PUBS MCHC 32.9, MCH 33.0 H Problem List: 1. Bacteremia due to Staphylococcus Plan: BASED ON VANCOMYCIN TROUGH LEVEL, RECOMMEND CONTINUING VANCOMYCIN 1 GM IV Q12H. PHARMACY WILL CONTINUE TO MONITOR DAILY AND ADJUST APPROPRIATE. at 1015
[2016-11-17 16:20] VITALS: BP 143/75
[2016-11-17 20:02] VITALS: BP 156/88
--- NOTE | 2016-11-18 07:58 | ACUTE CARE PROGRESS NOTE (QUA) ---
Progress Notes Subjective Date 11/18/16 Time 0755 Note No events overnight. Denies pain this morning but has been using tylenol #3 PRN for headache. Slept well last night. Reports still unable to see anything other than shadows. Alert, oriented to person and place and year. Heart with RRR, Lungs CTA. Abdomen soft, NT/ND, BS present. No edema. No eye drainage, right cornea is still cloudy with surrounding erythema. Patient/family reports: feeling better Nursing reports: no complaints Objective Findings Last VS-Temp:97.7 B/P:156/88 Pulse:75 Resp:16 SaO2:97 ROOM AIR Last weight lbs:118 oz:7 [id number] Method:Bed Scales Assessment/Plan Problem List 1. Hyponatremia 2. Anemia 3. Leukopenia 4. Thrombocytopenia 5. Bacteremia due to Staphylococcus 6. Severe protein-calorie malnutrition 7. Vision loss, bilateral 8. Acute infective conjunctivitis 9. Alcohol abuse Patient condition Stable Plan: continue current care This inpt stay is expected to cross 2 MNs from start of care Yes at 0757
[2016-11-18 08:00] VITALS: BP 119/64
[2016-11-18 09:14] VITALS: BP 119/64
[2016-11-18 20:02] VITALS: BP 129/70
[2016-11-19 08:07] VITALS: BP 127/66
[2016-11-19 08:38] VITALS: BP 127/66
[2016-11-19 19:56] VITALS: BP 148/80
[2016-11-20 08:50] VITALS: BP 120/69
[2016-11-20 19:50] VITALS: BP 132/70
--- NOTE | 2016-11-21 07:59 | ACUTE CARE PROGRESS NOTE (QUA) ---
Progress Notes Subjective Date 11/21/16 Time 0730 Note Patient is sitting up in bed eating breakfast with assistance. He reports appetite is improving. He denies any pain or discomfort. Patient further reports he is able to see shadows from left eye, no vision from right eye. Overall, he feels well with no concerns or complaints. Alert and oriented x3. Rate and rhythm regular. No edema. Pulses 2+. Lung sounds clear and equal bilaterally. Abdomen soft and nontender. Right sclera erythematous with scarring noted, no vision. Left mild erythema and minimal scarring, shadows only. Patient/family reports: feeling better Nursing reports: no complaints Objective Findings Last VS-Temp:98.7 B/P:132/70 Pulse:70 Resp:20 SaO2:97 ROOM AIR Last weight lbs:118 oz:7 [id number].723 Method:Bed Scales Reviewed: medications, vital signs, lab results Assessment/Plan Problem List 1. Hyponatremia 2. Anemia 3. Leukopenia 4. Thrombocytopenia 5. Bacteremia due to Staphylococcus 6. Severe protein-calorie malnutrition 7. Vision loss, bilateral 8. Acute infective conjunctivitis 9. Alcohol abuse Patient condition Improving Plan: continue current care, Continue IV antibiotics. Most likely discharge home on Thursday. This inpt stay is expected to cross 2 MNs from start of care Yes at 2558
[2016-11-21 08:00] VITALS: BP 140/73
[2016-11-21 08:30] VITALS: BP 140/73
[2016-11-21 09:49] LABS: HEMOGLOBIN 9.1 g/dL (14.1-18.0); LYMPH # 0.8 K/mm3 (0.7-4.5); LYMPH % 19.5 % (10-50)
--- NOTE | 2016-11-21 10:37 | CONSULT NOTE ---
Pharmacokinetic Consult Date of consult: 11/21/16 Time of consult: 1034 Referring provider: DR. JOHNSON Reason for consult: VANCOMYCIN TROUGH LEVEL Allergies: Coded Allergies: Penicillins (Mild, 02/04/16) Home Medications: Reported Medications No Home Medications (NO HOME MEDICATIONS) 1 EACH XX ONCE Height (feet): 5 Height (inches): 10.00 Medical History: CAD? No Angina: No [place]: No Hypertension? No Hyperlipidemia? No CHF? No DVT? No PE? No COPD? No Asthma? No Anemia? No GERD? No Gastric ulcers? No GI Bleed? No Hernia? No Thyroid Problems? No Hypothyroidism? No CVA? No Seizures? No Diabetes? No Renal Insuffiency? No UTI? No Stones? No BPH? No GB Disease: No Nephritic Syndrome? No Asplenia? No Hepatitis? No Sickle Cell Disease? No Arthritis? No Migraines? No Cataracts? Yes Glaucoma? No MRSA? No HIV? No TB? No Anxiety? No Depression? No Cancer? No More? Yes Additional hx: ETOH DEPENDANCE - BEER Labs: Laboratory Tests 11/21/16 0935: Sodium 122 L, Potassium 3.9, Chloride 91 L, Carbon Dioxide 27, BUN 5 L, Creatinine 0.6 L, Estimated Creat Clear 80, Estimated GFR (MDRD) 131, Glucose 109 H, Calcium 7.5 L, WBC 3.8 L, RBC 2.78 L, Hgb 9.1 L, Hct 27.5 L, MCV 98.8 H, RDW 16.4, Plt Count 168, MPV 6.9 L, Gran % 64.7, Gran # 2.5, Lymphocytes % 19.5, Monocytes % 7.5, Eosinophils % 7.9, Basophils % 0.3, Lymphocytes # 0.8, Monocytes # 0.3, Eosinophils # 0.3, Basophils # 0.0, PUBS MCHC 33.3, MCH 32.9 H, Vancomycin Trough 14.9 H Problem List: 1. Bacteremia due to Staphylococcus Plan: DUE TO PATIENT FACTORS AND VANCOMYCIN TROUGH LEVEL OF 14.9 MG/L, RECOMMEND CONTINUING CURRENT VANCOMYCIN DOSE OF 1 GM IV EVERY 12 HOURS. PHARMACY WILL CONTINUE TO MONITOR AND ADJUST APPROPRIATE. at 1037
[2016-11-21 15:56] VITALS: BP 117/62
[2016-11-21 19:57] VITALS: BP 145/77
[2016-11-22 08:30] VITALS: BP 125/60
[2016-11-22 09:45] VITALS: BP 125/60
[2016-11-22 19:50] VITALS: BP 123/63
[2016-11-23 08:00] VITALS: BP 98/47
[2016-11-23 08:35] VITALS: BP 98/47
[2016-11-23 20:18] VITALS: BP 145/70
[2016-11-24 08:00] VITALS: BP 137/70
[2016-11-24] MEDS ORDERED: THIAMINE HCL100 MG PO (09:13)
[2016-11-24] MEDS ORDERED: PRED FORTE 1% OP5 ML OP (09:13)
[2016-11-24] MEDS ORDERED: ERYTHROMYC3.5 GM/TUB OP (09:13)
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
[2016-11-24 09:30] VITALS: BP 137/70
[2016-11-24 11:30] VITALS: BP 137/70
--- OUTSIDE RECORDS SUMMARY | 2016-11-24 17:21 | External Medical Summary Rpt ---
Demographics Preferred Language Serbian Marital Status Unknown Christianity Affiliation Unknown Race Unknown Ethnic Group Unknown Author Author , Organization [employer] Address Unknown Phone Unavailable Purpose Continuity of Care Document - through 2016 Immunization No patient found.
--- OUTSIDE RECORDS SUMMARY | 2016-11-24 17:21 | External Medical Summary Rpt ---
Demographics Preferred Language Mohawk Marital Status Unknown Sikh Affiliation Unknown Race Unknown Ethnic Group Unknown Author Author , Organization [employer] Address Unknown Phone Unavailable Purpose Continuity of Care Document - through 2016 Immunization No patient found.
--- OUTSIDE RECORDS SUMMARY | 2016-11-24 17:21 | External Medical Summary Rpt ---
Author Author , Organization [employer] Address Unknown Phone Unavailable Purpose Continuity of Care Document - through 2016 Problems Code Diagnosis DOS Provider Status D64.9 ANEMIA, UNSPECIFIED D69.6 THROMBOCYTO PENIA, UNSPECIFIED D72.819 DECREASED WHITE BLOOD CELL COUNT, UNSPECIFIED E87.1 HYPO-OSMOLA LITY AND HYPONATREMI A
== END 2016-11-24 11:24 | disposition home health service (06) | DRG 124 ==
LOC: 2ND 08:32
PROVIDERS: Internal Medicine Adolescent Medicine
DX: H10.023 Other mucopurulent conjunctivitis, bilateral (principal); E43 Unspecified severe protein-calorie malnutrition; D61.818 Other pancytopenia; R78.81 Bacteremia; D69.6 Thrombocytopenia, unspecified; D64.9 Anemia, unspecified; E87.1 Hypo-osmolality and hyponatremia; B95.7 Other staphylococcus as the cause of diseases classified elsewhere; Z68.1 Body mass index [BMI] 19.9 or less, adult; Z91.81 History of falling; F10.20 Alcohol dependence, uncomplicated
CPT/HCPCS: J2405; J3370

== ENCOUNTER 2016-11-28 17:50 | Observation (INO) | payer MEDICARE ==
[~2016-11-28] VITALS: Ht 172.7 cm; Wt 44.0 kg
[~2016-11-28 17:50] MED LIST changes: +ERYTHROMYC3.5 GM/TUB OP; +PRED FORTE 1% OP5 ML OP; +THIAMINE HCL100 MG PO
[2016-11-28 17:53] VITALS: BP 99/53
[2016-11-28] MEDS ORDERED: PREDNISOLO OP (18:00)
--- OUTSIDE RECORDS SUMMARY | 2016-11-28 18:04 | External Medical Summary Rpt ---
Demographics Preferred Language Turkish Marital Status Unknown Scientology Affiliation Unknown Race Unknown Ethnic Group Unknown Author Author , Organization [employer] Address Unknown Phone Unavailable Purpose Continuity of Care Document - through 2016 Immunization No patient found.
--- OUTSIDE RECORDS SUMMARY | 2016-11-28 18:04 | External Medical Summary Rpt ---
Demographics Preferred Language Romanian Marital Status Unknown Gnosticist Affiliation Unknown Race Unknown Ethnic Group Unknown Author Author , Organization [employer] Address Unknown Phone Unavailable Purpose Continuity of Care Document - through 2016 Immunization No patient found.
--- NOTE | 2016-11-28 18:08 | Emergency Room Report ---
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 PT STATES HE WAS TAKING A NAP BEFORE THE AMBULANCE CAME. EMS SAID FAMILY CALLED BECAUSE HE HAD PASSED OUT. 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 N Clinical Suspician of Infection? N Mental Status: 1 - Regular (Normal Baseline) Sepsis Risk:Low Sepsis Risk Have you (or family members/close friends) recently traveled outside the [facility]? N If Yes, where/when: Have you had exposure to infectious disease within the past month? TB? Other? Specify: Patient was outside in the shade today in his wheelchair and his family states he passed out for around 5-10 seconds or so, he wasn't responsive A to come back inside a status blood pressure was 98 they stated that he passed out again about 3-4 more times each time this lasting about 5 seconds but they said that he was not simply sleeping or nodding off that he was unconscious. The patient himself states he has no complaints he denies any pain he states he feels his normal self the family states he is back to his baseline and that he seems to have improved with some fluid that ambulance has running currently. He denies any headache chest pain or abdominal pain denies any symptoms or problems from his perspective. He doesn't really remember the events. He speech is normal now. The family states that one of these episodes he had a little bit of slurred speech but that rapidly went away. Family states he is at his baseline mental status now patient states that he has no complaints all these episodes were very brief in duration lasting around 5 seconds or so. family Stated he was not out in the sun and they don't think he got overheated Comment Chest x-ray read by myself no acute disease no fracture no acute infiltrate ALLERGIES Coded Allergies: Penicillins (Mild, 02/04/16) Home Medications Active Scripts Erythromycin (Erythromycin Ophth Oint 3.5GM Tube) 0.25 GM OP TID #1 % Ref 1 Prov: 11/24/16 THIAMINE HCL (Thiamine HCl) 100 MG PO BID #60 TAB Ref 1 Prov: 11/24/16 PREDNISOLONE ACETATE (Prednisolone Acetate) 2 DROP OP TID #1 BOT Ref 1 Prov: 11/24/16 Reported Medications Prednisolone Acetate (Prednisolone Acet 1% Ophth Soln 5ML) 1 DROP OP TID #5 Discontinued Reported Medications No Home Medications (NO HOME MEDICATIONS) 1 EACH XX ONCE History Medical History General CAD? No Angina: No CO: No Hypertension? No Hyperlipidemia? No CHF? No DVT? No PE? No COPD? No Asthma? No Anemia? No GERD? No Gastric ulcers? No GI Bleed? No Hernia? No Thyroid Problems? No Hypothyroidism? No CVA? No Seizures? No Diabetes? No Renal Insuffiency? No End Stage Renal Disease? No UTI? No Stones? No BPH? No GB Disease: No Nephritic Syndrome? No Asplenia? No Hepatitis? No Sickle Cell Disease? No Arthritis? No Migraines? No Cataracts? Yes Glaucoma? No MRSA? No HIV? No TB? No Anxiety? No Depression? No Cancer? No More? Yes Additional hx: ETOH DEPENDANCE - BEER Immunization Hx DT/Tetanus > 10 YRS Pneumonia Refuses Surgical Hx Previous Surgery?Y CATARACT RIGHT EYE Social History Smoking Hx Smoker: Current Every Day Smoker Tobacco: Yes Type Snuff Packs/day < 1 Pack Alcohol Alcohol: Yes Review of Systems All Other Systems Reviewed and Negative Physical Exam Vital Signs Vital Signs Date Time Temp Pulse Resp B/P Pulse O2 O2 Flow FiO2 Ox Delivery Rate 11/28 1944 77 18 110/56 99 /02 1902 73 18 92/57 99 06/02 1753 71 18 99/53 92 General Appearance: Nontoxic appears cachectic Head: Normocephalic, without obvious abnormality, atraumatic. Eyes: conjunctiva/corneas clear ENT: Mucous membranes moist. Neck: No jugular venous distention. Cardiac: regular rate and rhythm Lungs: Clear to auscultation bilaterally Abdomen: Nontender, Nondistended, positive bowel sounds, no rebound : No CVA tenderness Extremities: no edema Musculoskeletal: No chest wall tenderness Skin: No rashes or lesions to exposed skin. Neurologic: Alert. Alert and oriented Cranial nerves intact chronically blind Strength 5 out of 5 Sensation intact to light touch holds both legs off the bed without drift Psychiatric: Normal affect (Shae AZUL, Darius) General Appearance cachetic Respiratory Status No: respiratory distress. Cardiovascular normal exam Neurologic alert Medical Decision Making LABS/Meds/Orders Pt receiving controlled substance in ED? No Results/Orders Laboratory Tests 11/28/16 1820: Sodium 120 L, Potassium 3.7, Chloride 87 L, Carbon Dioxide 24, BUN 7, Creatinine 0.7 L, Estimated Creat Clear 67, Estimated GFR (MDRD) 110, Glucose 90, Calcium 8.6, Total Bilirubin 0.7, AST 54 H, ALT 60, Alkaline Phosphatase 91 , Creatine Kinase 32 L, CK-MB (CK-2) Rel Index 1.6, CK and CKMB Interp 0.5, Troponin I < 0.02, Total Protein 7.2, Albumin 2.8 L, Globulin 4.4 H, Albumin/ Globulin Ratio 0.6 L, WBC 4.0 L, RBC 3.33 L, Hgb 11.1 L, Hct 33.7 L, MCV 101.0 H, RDW 16.5, Plt Count 289, MPV 7.0 L, Gran % 33.7 L, Gran # 1.3, Lymphocytes % 48.4, Monocytes % 9.8 H, Eosinophils % 7.2, Basophils % 0.9, Lymphocytes # 1.9, Monocytes # 0.4, Eosinophils # 0.3, Basophils # 0.0, PUBS MCHC 33.1, MCH 33.4 H Current Medication Orders Sig/Lorna Start time Last Medication Dose Route Stop Time Status Admin Sodium Chloride 10 ML PRN PRN 11/28 1814 AC IV 11/29 180 Orders Procedure Date/time Status DIET-NOTHING BY MOUTH 11/[address] HEAD REQ 11/28 1812 Active CHEST-AP VIEW ONLY 11/28 180 Active 12 LEAD EKG-BESSON (INITIAL) 11/28 180 Active ELECTROCARDIOGRAM REQUEST 11/28 180 Active IV SALINE LOCK 11/28 180 Active CBC WITH AUTO DIFF 11/28 180 Complete CARDIAC ENZYMES 11/28 180 Complete CHEM 12 PROFILE 11/28 1800 Complete 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
[2016-11-28 18:32] LABS: LYMPH # 1.9 K/mm3 (0.7-4.5); LYMPH % 48.4 % (10-50)
[2016-11-28 18:55] LABS: BUN 7 mg/dL (7-18)
[2016-11-28 18:57] LABS: HEMOGLOBIN 11.1 g/dL (14.1-18.0)
[2016-11-28 19:04] LABS: GFR (ESTIMATED) 110 ML/MIN (>60)
--- NOTE | 2016-11-28 19:45 | RADIOLOGY REPORT PS360 ---
CT HEAD W/O CONTRAST HISTORY: SYNCOPE ORDERING PHYSICIAN: Darius Kaufman MD PATIENT AGE: 76 years COMPARISON: 11/09/2016 TECHNIQUE: Axial images obtained without contrast. Brain and bone windows reviewed. FINDINGS: No midline shift, mass effect, intracranial hemorrhage, hydrocephalus, or extra-axial fluid collection is evident. There is generalized atrophy with hypoattenuation periventricular region consistent with ischemic gliotic change from microvascular disease. There is mild prominence of lateral ventricles felt to be related to volume loss similar to the previous exam. The calvarium has an unremarkable appearance. No mastoid effusion. Mild ethmoid sinus opacification.. IMPRESSION: 1. No acute intracranial pathology. 2. Atrophy with chronic ischemic change. 3. Ethmoid sinus disease.
--- OUTSIDE RECORDS SUMMARY | 2016-11-28 20:15 | External Medical Summary Rpt ---
Demographics Preferred Language Tamazight Marital Status Unknown Voodoo Affiliation Unknown Race Unknown Ethnic Group Unknown Author Author , Organization [employer] Address Unknown Phone Unavailable Purpose Continuity of Care Document - through 2016 Immunization No patient found.
--- OUTSIDE RECORDS SUMMARY | 2016-11-28 20:15 | External Medical Summary Rpt ---
Demographics Preferred Language Persian Marital Status Unknown Buddhist Affiliation Unknown Race Unknown Ethnic Group Unknown Author Author , Organization [employer] Address Unknown Phone Unavailable Purpose Continuity of Care Document - through 2016 Immunization No patient found.
--- OUTSIDE RECORDS SUMMARY | 2016-11-28 20:16 | External Medical Summary Rpt ---
Author Author DAMON Quinn, DAMON [employer] Address Unknown Phone Unavailable Results CBC W Auto Differential panel in Blood Observa Value Referen Units Interpr Notes Date tion ce etation Range Basophils 0 - 0.2 K/MM3 Normal No Luis 2 informati 2017 6:20 [#/volume on in PM ] in source Blood by data Automated count Basophils 0.1 - 2.0 % Normal No Luis 2 /100 informati 2017 6:20 leukocyte on in PM s in source Blood by data Automated count Eosinophi 0.0 - 0.4 K/mm3 Normal No Luis 2 ls informati 2017 6:20 [#/volume on in PM ] in source Blood by data Automated count Eosinophi 0.1 - % Normal No Luis 2 ls/100 12.0 informati 2017 6:20 leukocyte on in PM s in source Blood by data Automated count Granulocy 1.3 - 8.0 K/mm3 Normal No Luis 2 jennyfer informati 2017 6:20 [#/volume on in PM ] in source Blood by data Automated count Granulocy 37.0 - % Low No Luis 2 jennyfer/100 80.0 informati 2017 6:20 leukocyte on in PM s in source Blood by data Automated count Hematocri 42.0 - % Low No Luis 2 t [Volume 52.0 informati 2017 6:20 on in PM Fraction] source of Blood data Hemoglobi 14.1 - g/dL Low No Luis 2 n 18.0 informati 2017 6:20 [Mass/vol on in PM ume] in source Blood data Lymphocyt 0.7 - 4.5 K/mm3 Normal No Luis 2 es informati 2017 6:20 [#/volume on in PM ] in source Unspecifi data ed specimen by Automated count Lymphocyt 10 - 50 % Normal No Luis 2 es informati 2017 6:20 [#/volume on in PM ] in source Unspecifi data ed specimen by Automated count Erythrocy 27 - 31.2 pg High No Luis 2 te mean informati 2017 6:20 corpuscul on in PM ar source hemoglobi data n [Entitic mass] Erythrocy 31.8 - g/dl Normal No Luis 2 te mean 35.4 informati 2016 6:20 corpuscul on in PM ar source hemoglobi data n concentra tion [Mass/vol ume] by Automated count Erythrocy 82.2 - fl High No Luis 2 te mean 97.8 informati 2017 6:20 corpuscul on in PM ar volume source [Entitic data volume] by Automated count Monocytes 0.1 - 1.0 K/mm3 Normal No Luis 2 informati 2016 6:20 [#/volume on in PM ] in source Blood by data Automated count Monocytes 1.7 - 9.3 % High No Luis 2 /100 informati 2017 6:20 leukocyte on in PM s in source Blood by data Automated count Platelet 7.4 - fl Low No Luis 2 mean 10.4 informati 2017 6:20 volume on in PM [Entitic source volume] data in Blood by Automated count Platelets 142 - 424 K/mm3 No No Luis 2 informati informati 2017 6:20 [#/volume on in on in PM ] in source source Blood data data Erythrocy 4.6 - 6.2 M/mm3 Low No Luis 2 jennyfer informati 2017 6:20 [#/volume on in PM ] in source Amniotic data fluid Erythrocy 11.5 - % Normal No Luis 2 te 17.5 informati 2017 6:20 distribut on in PM ion width source [Entitic data volume] by Automated count Leukocyte 4.8 - K/MM3 Low No Luis 2 s 10.8 informati 2016 6:20 [#/volume on in PM ] in source Blood data Vancomycin [Mass/volume] in Serum or Plasma --trough Observa Value Referen Units Interpr Notes Date tion ce etation Range Vancomyci 5.0 - mcg/mL High No November 21 n 10.0 informati 2016 9:35 [Mass/vol on in AM ume] in source Serum or data Plasma --trough Basic metabolic panel in Blood Observa Value Referen Units Interpr Notes Date tion ce etation Range Urea 7 - 18 mg/dL Low No November 21 nitrogen informati 2016 9:35 [Mass/vol on in AM ume] in source Serum or data Plasma Calcium 8.5 - mg/dL Low No November 21 [Mass/vol 10.1 informati 2016 9:35 ume] in on in AM Serum or source Plasma data Chloride 98 - 107 mmoL/L Low No November 21 [Moles/vo informati 2016 9:35 lume] in on in AM Serum or source Plasma data Carbon 21.0 - mmoL/L Normal No November 21 dioxide, 32.0 informati 2016 9:35 total on in AM [Moles/vo source lume] in data Serum or Plasma Creatinin 0.70 - mg/dL Low No November 21 e 1.30 informati 2016 9:35 [Mass/vol on in AM ume] in source Serum or data Plasma Creatinin 50 - 200 ML/MIN Normal No November 21 e renal informati 2016 9:35 clearance on in AM source predicted data by Cockcroft -Gault formula Estimated >60 ML/MIN No REFERENCE November 21 informati RANGE: 2017 9:35 glomerula on in >60 AM r source ML/MIN/1. filtratio data 73 SQUARE n rate METERSIf (GF this patient is -A merican, then multiply theresult by 1.210. Glucose 74 - 106 mg/dL High No November 21 [Mass/vol informati 2016 9:35 ume] in on in AM Serum or source Plasma data Potassium 3.5 - 5.1 mmoL/L Normal No November 21 informati 2016 9:35 [Moles/vo on in AM lume] in source Serum or data Plasma Sodium 136 - 145 mmoL/L Low No November 21 [Moles/vo informati 2016 9:35 lume] in on in AM Serum or source Plasma data CBC W Auto Differential panel in Blood Observa Value Referen Units Interpr Notes Date tion ce etation Range Basophils 0 - 0.2 K/MM3 Normal No November 21 informati 2016 9:35 [#/volume on in AM ] in source Blood by data Automated count Basophils 0.1 - 2.0 % Normal No November 21 informati 2016 9:35 leukocyte on in AM s in source Blood by data Automated count Eosinophi 0.0 - 0.4 K/mm3 Normal No November 21 ls informati 2016 9:35 [#/volume on in AM ] in source Blood by data Automated count Eosinophi 0.1 - % Normal No November 21 ls/100 12.0 informati 2016 9:35 leukocyte on in AM s in source Blood by data Automated count Granulocy 1.3 - 8.0 K/mm3 Normal No November 21 jennyfer informati 2016 9:35 [#/volume on in AM ] in source Blood by data Automated count Granulocy 37.0 - % Normal No November 21 jennyfer/100 80.0 informati 2016 9:35 leukocyte on in AM s in source Blood by data Automated count Hematocri 42.0 - % Low No November 21 t [Volume 52.0 informati 2016 9:35 on in AM Fraction] source of Blood data Hemoglobi 14.1 - g/dL Low No November 21 n 18.0 informati 2016 9:35 [Mass/vol on in AM ume] in source Blood data Lymphocyt 0.7 - 4.5 K/mm3 Normal No November 21 es informati 2016 9:35 [#/volume on in AM ] in source Unspecifi data ed specimen by Automated count Lymphocyt 10 - 50 % Normal November 21 es informati 2016 9:35 [#/volume on in AM ] in source Unspecifi data ed specimen by Automated count Erythrocy 27 - 31.2 pg High November 21 te mean informati 2016 9:35 corpuscul on in AM ar source hemoglobi data n [Entitic mass] Erythrocy 31.8 - g/dl Normal November 21 te mean 35.4 informati 2016 9:35 corpuscul on in AM ar source hemoglobi data n concentra tion [Mass/vol ume] by Automated count Erythrocy 82.2 - fl High No November 21 te mean 97.8 informati 2016 9:35 corpuscul on in AM ar volume source [Entitic data volume] by Automated count Monocytes 0.1 - 1.0 K/mm3 Normal No November 21 informati 2016 9:35 [#/volume on in AM ] in source Blood by data Automated count Monocytes 1.7 - 9.3 % Normal No November 21 informati 2016 9:35 leukocyte on in AM s in source Blood by data Automated count Platelet 7.4 - fl Low November 21 mean 10.4 informati 2016 9:35 volume on in AM [Entitic source volume] data in Blood by Automated count Platelets 142 - 424 K/mm3 No November 21 informati informati 2016 9:35 [#/volume on in on in AM ] in source source Blood data data Erythrocy 4.6 - 6.2 M/mm3 Low November 21 jennyfer informati 2016 9:35 [#/volume on in AM ] in source Amniotic data fluid Erythrocy 11.5 - % Normal No November 21 te 17.5 informati 2016 9:35 distribut on in AM ion width source [Entitic data volume] by Automated count Leukocyte 4.8 - K/MM3 Low No November 21 s 10.8 informati 2016 9:35 [#/volume on in AM ] in source Blood data Vancomycin [Mass/volume] in Serum or Plasma --trough Observa Value Referen Units Interpr Notes Date tion ce etation Range COMMENTS TO EYE PHYSICIAN: PLEASE CALL PHARMACY WITH TROUGH LEVEL Vancomyci 5.0 - mcg/mL High CALLED November 17 n 10.0 CALEB AT 2017 9:30 [Mass/vol 1013 AM ume] in Serum or Plasma --trough CBC W Auto Differential panel in Blood Observa Value Referen Units Interpr Notes Date tion ce etation Range Basophils 0 - 0.2 K/MM3 Normal No November 17 inform2016 5:35 [#/volume on in AM ] in source Blood by data Automated count Basophils 0.1 - 2.0 % Normal No November 17 informati 2016 5:35 leukocyte on in AM s in source Blood by data Automated count Eosinophi 0.0 - 0.4 K/mm3 Normal No November 17 ls informati 2016 5:35 [#/volume on in AM ] in source Blood by data Automated count Eosinophi 0.1 - % Normal No November 17 ls/100 12.0 informati 2016 5:35 leukocyte on in AM s in source Blood by data Automated count Granulocy 1.3 - 8.0 K/mm3 Normal No November 17 jennyfer informati 2016 5:35 [#/volume on in AM ] in source Blood by data Automated count Granulocy 37.0 - % Normal No November 17 jennyfer/100 80.0 informati 2016 5:35 leukocyte on in AM s in source Blood by data Automated count Hematocri 42.0 - % Low No November 17 t [Volume 52.0 informati 2016 5:35 on in AM Fraction] source of Blood data Hemoglobi 14.1 - g/dL Low No November 17 n 18.0 informati 2016 5:35 [Mass/vol on in AM ume] in source Blood data Lymphocyt 0.7 - 4.5 K/mm3 Normal No November 17 es informati 2016 5:35 [#/volume on in AM ] in source Unspecifi data ed specimen by Automated count Lymphocyt 10 - 50 % Normal No November 17 es informati 2016 5:35 [#/volume on in AM ] in source Unspecifi data ed specimen by Automated count Erythrocy 27 - 31.2 pg High No November 17 te mean informati 2016 5:35 corpuscul on in AM ar source hemoglobi data n [Entitic mass] Erythrocy 31.8 - g/dl Normal No November 17 te mean 35.4 informati 2016 5:35 corpuscul on in AM ar source hemoglobi data n concentra tion [Mass/vol ume] by Automated count Erythrocy 82.2 - fl High No November 17 te mean 97.8 informati 2016 5:35 corpuscul on in AM ar volume source [Entitic data volume] by Automated count Monocytes 0.1 - 1.0 K/mm3 Normal No November 17 informati 2016 5:35 [#/volume on in AM ] in source Blood by data Automated count Monocytes 1.7 - 9.3 % Normal No November 17 /100 informati 2016 5:35 leukocyte on in AM s in source Blood by data Automated count Platelet 7.4 - fl Low November 17 mean 10.4 informati 2016 5:35 volume on in AM [Entitic source volume] data in Blood by Automated count Platelets 142 - 424 K/mm3 Low No November 17 informati 2016 5:35 [#/volume on in AM ] in source Blood data Erythrocy 4.6 - 6.2 M/mm3 Low No November 17 jennyfer informati 2016 5:35 [#/volume on in AM ] in source Amniotic data fluid Erythrocy 11.5 - % Normal No November 17 te 17.5 informati 2016 5:35 distribut on in AM ion width source [Entitic data volume] by Automated count Leukocyte 4.8 - K/MM3 No November 17 s 10.8 informati informati 2016 5:35 [#/volume on in on in AM ] in source source Blood data data Basic metabolic panel in Blood Observa Value Referen Units Interpr Notes Date tion ce etation Range Urea 7 - 18 mg/dL Normal No November 17 nitrogen informati 2016 5:35 [Mass/vol on in AM ume] in source Serum or data Plasma Calcium 8.5 - mg/dL Low No November 17 [Mass/vol 10.1 informati 2016 5:35 ume] in on in AM Serum or source Plasma data Chloride 98 - 107 mmoL/L Normal No November 17 [Moles/vo informati 2016 5:35 lume] in on in AM Serum or source Plasma data Carbon 21.0 - mmoL/L Normal No November 17 dioxide, 32.0 informati 2016 5:35 total on in AM [Moles/vo source lume] in data Serum or Plasma Creatinin 0.70 - mg/dL Low No November 17 e 1.30 informati 2016 5:35 [Mass/vol on in AM ume] in source Serum or data Plasma Creatinin 50 - 200 ML/MIN Normal No November 17 e renal informati 2016 5:35 clearance on in AM source predicted data by Cockcroft -Gault formula Estimated >60 ML/MIN No REFERENCE November 17 informati RANGE: 2017 5:35 glomerula on in >60 AM r source ML/MIN/1. filtratio data 73 SQUARE n rate METERSIf (GF this patient is -A merican, then multiply theresult by 1.210. Glucose 74 - 106 mg/dL Normal No November 17 [Mass/vol inform2016 5:35 ume] in on in AM Serum or source Plasma data Potassium 3.5 - 5.1 mmoL/L Normal No November 17 inform2016 5:35 [Moles/vo on in AM lume] in source Serum or data Plasma Sodium 136 - 145 mmoL/L Low No November 17 [Moles/vo informati 2016 5:35 lume] in on in AM Serum or source Plasma data Vancomycin [Mass/volume] in Serum or Plasma --trough Observa Value Referen Units Interpr Notes Date tion ce etation Range Vancomyci 5.0 - mcg/mL High No November 14 n 10.0 informati 2016 9:50 [Mass/vol on in AM ume] in source Serum or data Plasma --trough CBC W Auto Differential panel in Blood Observa Value Referen Units Interpr Notes Date tion ce etation Range Basophils 0 - 0.2 K/MM3 Normal No November 14 informati 2016 6:10 [#/volume on in AM ] in source Blood by data Automated count Basophils 0.1 - 2.0 % Low No May 19 /100 informati 2017 6:10 leukocyte on in AM s in source Blood by data Automated count Eosinophi 0.0 - 0.4 K/mm3 Normal No November 14 ls informati 2016 6:10 [#/volume on in AM ] in source Blood by data Automated count Eosinophi 0.1 - % Normal November 14 ls/100 12.0 informati 2016 6:10 leukocyte on in AM s in source Blood by data Automated count Granulocy 1.3 - 8.0 K/mm3 Normal No November 14 jennyfer informati 2016 6:10 [#/volume on in AM ] in source Blood by data Automated count Granulocy 37.0 - % High No November 14 jennyfer/100 80.0 informati 2016 6:10 leukocyte on in AM s in source Blood by data Automated count Hematocri 42.0 - % Low No November 14 t [Volume 52.0 informati 2016 6:10 on in AM Fraction] source of Blood data Hemoglobi 14.1 - g/dL Low November 14 n 18.0 informati 2016 6:10 [Mass/vol on in AM ume] in source Blood data Lymphocyt 0.7 - 4.5 K/mm3 Normal November 14 es informati 2016 6:10 [#/volume on in AM ] in source Unspecifi data ed specimen by Automated count Lymphocyt 10 - 50 % Normal November 14 es informati 2016 6:10 [#/volume on in AM ] in source Unspecifi data ed specimen by Automated count Erythrocy 27 - 31.2 pg High No November 14 te mean informati 2016 6:10 corpuscul on in AM ar source hemoglobi data n [Entitic mass] Erythrocy 31.8 - g/dl Normal November 14 te mean 35.4 informati 2016 6:10 corpuscul on in AM ar source hemoglobi data n concentra tion [Mass/vol ume] by Automated count Erythrocy 82.2 - fl High November 14 te mean 97.8 informati 2016 6:10 corpuscul on in AM ar volume source [Entitic data volume] by Automated count Monocytes 0.1 - 1.0 K/mm3 Normal No November 14 informati 2016 6:10 [#/volume on in AM ] in source Blood by data Automated count Monocytes 1.7 - 9.3 % Normal No November 14 informati 2016 6:10 leukocyte on in AM s in source Blood by data Automated count Platelet 7.4 - fl Low November 14 mean 10.4 informati 2017 6:10 volume on in AM [Entitic source volume] data in Blood by Automated count Platelets 142 - 424 K/mm3 Low No November 14 informati 2017 6:10 [#/volume on in AM ] in source Blood data Erythrocy 4.6 - 6.2 M/mm3 Low No November 14 jennyfer informati 2016 6:10 [#/volume on in AM ] in source Amniotic data fluid Erythrocy 11.5 - % Normal No November 14 te 17.5 informati 2017 6:10 distribut on in AM ion width source [Entitic data volume] by Automated count Leukocyte 4.8 - K/MM3 No November 14 s 10.8 informati informati 2016 6:10 [#/volume on in on in AM ] in source source Blood data data Basic metabolic panel in Blood Observa Value Referen Units Interpr Notes Date tion ce etation Range Urea 7 - 18 mg/dL No No November 14 nitrogen informati informati 2016 6:10 [Mass/vol on in on in AM ume] in source source Serum or data data Plasma Calcium 8.5 - mg/dL Low No November 14 [Mass/vol 10.1 informati 2016 6:10 ume] in on in AM Serum or source Plasma data Chloride 98 - 107 mmoL/L Normal No November 14 [Moles/vo informati 2016 6:10 lume] in on in AM Serum or source Plasma data Carbon 21.0 - mmoL/L Normal No November 14 dioxide, 32.0 informati 2016 6:10 total on in AM [Moles/vo source lume] in data Serum or Plasma Creatinin 0.70 - mg/dL Low No November 14 e 1.30 informati 2016 6:10 [Mass/vol on in AM ume] in source Serum or data Plasma Creatinin 50 - 200 ML/MIN Normal No November 14 e renal informati 2016 6:10 clearance on in AM source predicted data by Cockcroft -Gault formula Estimated >60 ML/MIN No REFERENCE November 14 informati RANGE: 2017 6:10 glomerula on in >60 AM r source ML/MIN/1. filtratio data 73 SQUARE n rate METERSIf (GF this patient is -A merican, then multiply theresult by 1.210. Glucose 74 - 106 mg/dL Normal No November 14 [Mass/vol informati 2016 6:10 ume] in on in AM Serum or source Plasma data Potassium 3.5 - 5.1 mmoL/L Normal No November 14 informati 2016 6:10 [Moles/vo on in AM lume] in source Serum or data Plasma Sodium 136 - 145 mmoL/L Low No November 14 [Moles/vo informati 2016 6:10 lume] in on in AM Serum or source Plasma data Vancomycin [Mass/volume] in Serum or Plasma --trough Observa Value Referen Units Interpr Notes Date tion ce etation Range Vancomyci 5.0 - mcg/mL Low RESULTS November 13 n 10.0 CALLED TO 2017 9:30 [Mass/vol AM ume] in PHARMACIS Serum or T: CALEB Plasma B. --trough 7 0949 Noris Calle Basic metabolic panel in Blood Observa Value Referen Units Interpr Notes Date tion ce etation Range Urea 7 - 18 mg/dL Low No November 12 nitrogen informati 2016 6:30 [Mass/vol on in AM ume] in source Serum or data Plasma Calcium 8.5 - mg/dL Low No November 12 [Mass/vol 10.1 informati 2016 6:30 ume] in on in AM Serum or source Plasma data Chloride 98 - 107 mmoL/L Low No November 12 [Moles/vo informati 2016 6:30 lume] in on in AM Serum or source Plasma data Carbon 21.0 - mmoL/L Normal No November 12 dioxide, 32.0 informati 2016 6:30 total on in AM [Moles/vo source lume] in data Serum or Plasma Creatinin 0.70 - mg/dL Low No November 12 e 1.30 informati 2017 6:30 [Mass/vol on in AM ume] in source Serum or data Plasma Creatinin 50 - 200 ML/MIN Normal No November 12 e renal informati 2016 6:30 clearance on in AM source predicted data by Cockcroft -Gault formula Estimated >60 ML/MIN No REFERENCE November 12 informati RANGE: 2017 6:30 glomerula on in >60 AM r source ML/MIN/1. filtratio data 73 SQUARE n rate METERSIf (GF this patient is -A merican, then multiply theresult by 1.210. Glucose 74 - 106 mg/dL Normal No November 12 [Mass/vol informati 2016 6:30 ume] in on in AM Serum or source Plasma data Potassium 3.5 - 5.1 mmoL/L Low No November 12 informati 2016 6:30 [Moles/vo on in AM lume] in source Serum or data Plasma Sodium 136 - 145 mmoL/L Low No November 12 [Moles/vo informati 2016 6:30 lume] in on in AM Serum or source Plasma data CBC W Auto Differential panel in Blood Observa Value Referen Units Interpr Notes Date tion ce etation Range Basophils 0 - 0.2 K/MM3 Normal No November 11 informati 2016 6:20 [#/volume on in AM ] in source Blood by data Automated count Basophils 0.1 - 2.0 % Normal No November 11 informati 2016 6:20 leukocyte on in AM s in source Blood by data Automated count Eosinophi 0.0 - 0.4 K/mm3 Normal No November 11 ls informati 2016 6:20 [#/volume on in AM ] in source Blood by data Automated count Eosinophi 0.1 - % Normal No November 11 ls/100 12.0 informati 2016 6:20 leukocyte on in AM s in source Blood by data Automated count Granulocy 1.3 - 8.0 K/mm3 Normal No November 11 jennyfer informati 2016 6:20 [#/volume on in AM ] in source Blood by data Automated count Granulocy 37.0 - % Normal No November 11 jennyfer/100 80.0 informati 2016 6:20 leukocyte on in AM s in source Blood by data Automated count Hematocri 42.0 - % Low No November 11 t [Volume 52.0 informati 2016 6:20 on in AM Fraction] source of Blood data Hemoglobi 14.1 - g/dL Low No November 11 n 18.0 informati 2016 6:20 [Mass/vol on in AM ume] in source Blood data Lymphocyt 0.7 - 4.5 K/mm3 Low No November 11 es informati 2016 6:20 [#/volume on in AM ] in source Unspecifi data ed specimen by Automated count Lymphocyt 10 - 50 % Normal No November 11 es informati 2016 6:20 [#/volume on in AM ] in source Unspecifi data ed specimen by Automated count Erythrocy 27 - 31.2 pg High No November 11 te mean informati 2016 6:20 corpuscul on in AM ar source hemoglobi data n [Entitic mass] Erythrocy 31.8 - g/dl Normal No November 11 te mean 35.4 informati 2016 6:20 corpuscul on in AM ar source hemoglobi data n concentra tion [Mass/vol ume] by Automated count Erythrocy 82.2 - fl Normal No November 11 te mean 97.8 informati 2016 6:20 corpuscul on in AM ar volume source [Entitic data volume] by Automated count Monocytes 0.1 - 1.0 K/mm3 Normal No November 11 informati 2016 6:20 [#/volume on in AM ] in source Blood by data Automated count Monocytes 1.7 - 9.3 % High No November 11 / informati 2016 6:20 leukocyte on in AM s in source Blood by data Automated count Platelet 7.4 - fl Low No November 11 mean 10.4 informati 2016 6:20 volume on in AM [Entitic source volume] data in Blood by Automated count Platelets 142 - 424 K/mm3 Low No November 11 informati 2016 6:20 [#/volume on in AM ] in source Blood data Erythrocy 4.6 - 6.2 M/mm3 Low No November 11 jennyfer informati 2016 6:20 [#/volume on in AM ] in source Amniotic data fluid Erythrocy 11.5 - % Normal No November 11 te 17.5 informati 2016 6:20 distribut on in AM ion width source [Entitic data volume] by Automated count Leukocyte 4.8 - K/MM3 Low No November 11 s 10.8 informati 2016 6:20 [#/volume on in AM ] in source Blood data Differential panel, method unspecified - Observa Value Referen Units Interpr Notes Date tion ce etation Range Lymphocyt 0 - 5 % Normal No November 11 es informati 2016 6:20 Variant/1 on in AM 00 source leukocyte data s in Blood by Manual count Eosinophi 0 - 3 % High No November 11 ls/100 informati 2016 6:20 leukocyte on in AM s in source Blood by data Manual count Hypochr 1+ No No No No November 11 omia informa informa informa informa 2016 [Presen tion in tion in tion in tion in 6:20 AM ce] in source source source source Blood data data data data LYMPH 24 10 - 50 % Normal No November 11 informa 2016 tion in 6:20 AM source data Monocytes 2 - 9 % Normal No November 11 /100 informati 2016 6:20 leukocyte on in AM s in source Blood by data Automated count Platele MARKED No No No No November 11 ts DECREAS informa informa informa informa 2016 [Presen E tion in tion in tion in tion in 6:20 AM ce] in source source source source Blood data data data data by Light microsc opy Neutrophi 42 - 76 % Normal No November 11 ls informati 2016 6:20 [#/volume on in AM ] in source Blood by data Automated count Cells No #CELLS No No November 11 Counted informati informati informati 2016 6:20 Total [#] on in on in on in AM in Blood source source source data data data Comprehensive metabolic 2000 panel in Serum or Plasma Observa Value Referen Units Interpr Notes Date tion ce etation Range Albumin/G 1.1 - 1.8 No Low No November 11 lobulin informati informati 2016 6:20 [Mass on in on in AM ratio] in source source Serum or data data Plasma Albumin 3.4 - 5.0 gm/dL Low No November 11 [Mass/vol informati 2016 6:20 ume] in on in AM Serum or source Plasma data Alkaline 46 - 116 U/L Normal No November 11 phosphata informati 2016 6:20 se on in AM [Enzymati source c data activity/ volume] in Serum or Plasma Bilirubin 0.2 - 1.0 mg/dL High No November 11 .total informati 2016 6:20 [Mass/vol on in AM ume] in source Serum or data Plasma Urea 7 - 18 mg/dL Low No November 11 nitrogen informati 2016 6:20 [Mass/vol on in AM ume] in source Serum or data Plasma Calcium 8.5 - mg/dL Low No November 11 [Mass/vol 10.1 informati 2016 6:20 ume] in on in AM Serum or source Plasma data Chloride 98 - 107 mmoL/L Low No November 11 [Moles/vo informati 2016 6:20 lume] in on in AM Serum or source Plasma data Carbon 21.0 - mmoL/L Normal No November 11 dioxide, 32.0 informati 2017 6:20 total on in AM [Moles/vo source lume] in data Serum or Plasma Creatinin 0.70 - mg/dL Low No November 11 e 1.30 informati 2016 6:20 [Mass/vol on in AM ume] in source Serum or data Plasma Creatinin 50 - 200 ML/MIN Normal No November 11 e renal informati 2016 6:20 clearance on in AM source predicted data by Cockcroft -Gault formula Estimated >60 ML/MIN No REFERENCE November 11 informati RANGE: 2017 6:20 glomerula on in >60 AM r source ML/MIN/1. filtratio data 73 SQUARE n rate METERSIf (GF this patient is -A merican, then multiply theresult by 1.210. Globulin 1.3 - 3.2 gm/dL High No November 11 [Mass/vol informati 2016 6:20 ume] in on in AM Serum source data Glucose 74 - 106 mg/dL Normal No November 11 [Mass/vol informati 2016 6:20 ume] in on in AM Serum or source Plasma data Potassium 3.5 - 5.1 mmoL/L Low No November 11 informati 2016 6:20 [Moles/vo on in AM lume] in source Serum or data Plasma Sodium 136 - 145 mmoL/L Low No November 11 [Moles/vo informati 2016 6:20 lume] in on in AM Serum or source Plasma data Aspartate 15 - 37 U/L High No November 11 informati 2016 6:20 aminotran on in AM sferase source [Enzymati data c activity/ volume] in Serum or Plasma Alanine 12 - 78 U/L No No November 11 aminotran informati informati 2016 6:20 sferase on in on in AM [Enzymati source source c data data activity/ volume] in Serum or Plasma Protein 6.4 - 8.2 gm/dL Low No November 11 [Mass/vol informati 2016 6:20 ume] in on in AM Serum or source Plasma data Hemoglobin & Hematocrit panel in Blood Observa Value Referen Units Interpr Notes Date tion ce etation Range COMMENTS TO EYE PHYSICIAN: POST TRANSFUSION Hematocri 42.0 - % Low No November 10 t [Volume 52.0 informati 2016 7:43 on in PM Fraction] source of Blood data Hemoglobi 14.1 - g/dL Low No November 10 n 18.0 informati 2017 7:43 [Mass/vol on in PM ume] in source Blood data Blood product special preparation [Type] Observa Value Referen Units Interpr Notes Date tion ce etation Range Blood BLOOD No No No BLOOD November 10 product UNIT informa informa informa UNIT # 2017 RELEASE tion in tion in in : W0382 7:07 PM special source source source 17 data data data [id number] prepara O tion POSRELE [Type] ASED 7 Pato,Luca piedad Blood product special preparation [Type] Observa Value Referen Units Interpr Notes Date ti ce etation Range Blood BLOOD No No No BLOOD November 10 product UNIT informa informa informa UNIT # 2017 RELEASE tion in tion in in : W0382 9:46 AM special source source source 17 data data data [id number] prepara RELEASE tion D [Type] 7Boyers ,Lucind aO POSITIV E CBC W Auto Differential panel in Blood Observa Value Referen Units Interpr Notes Date ti ce etation Range Basophils 0 - 0.2 K/MM3 Normal No November 10 informati 2016 6:25 [#/volume on in AM ] in source Blood by data Automated count Basophils 0.1 - 2.0 % Normal No November 10 informati 2016 6:25 leukocyte on in AM s in source Blood by data Automated count Eosinophi 0.0 - 0.4 K/mm3 Normal No November 10 ls informati 2016 6:25 [#/volume on in AM ] in source Blood by data Automated count Eosinophi 0.1 - % Normal No November 10 ls/100 12.0 informati 2016 6:25 leukocyte on in AM s in source Blood by data Automated count Granulocy 1.3 - 8.0 K/mm3 Normal No November 10 jennyfer informati 2016 6:25 [#/volume on in AM ] in source Blood by data Automated count Granulocy 37.0 - % Normal No November 10 jennyfer/100 80.0 informati 2016 6:25 leukocyte on in AM s in source Blood by data Automated count Hematocri 42.0 - % Low alert November 10 t [Volume 52.0 2016 6:25 CRITICAL AM Fraction] RESULTS of Blood RESU LTS CALLED TO: NJ Grayson. 11/10/16 0721 Noris Calle Hemoglobi 14.1 - g/dL Low alert November 10 n 18.0 2016 6:25 [Mass/vol CRITICAL AM ume] in RESULTS Blood RESU LTS CALLED TO: NJ Real 11/10/16 0718 Noris Calle Lymphocyt 0.7 - 4.5 K/mm3 Low No November 10 es informati 2016 6:25 [#/volume on in AM ] in source Unspecifi data ed specimen by Automated count Lymphocyt 10 - 50 % Normal No November 10 es informati 2016 6:25 [#/volume on in AM ] in source Unspecifi data ed specimen by Automated count Erythrocy 27 - 31.2 pg High No November 10 te mean informati 2016 6:25 corpuscul on in AM ar source hemoglobi data n [Entitic mass] Erythrocy 31.8 - g/dl Normal No November 10 te mean 35.4 informati 2017 6:25 corpuscul on in AM ar source hemoglobi data n concentra tion [Mass/vol ume] by Automated count Erythrocy 82.2 - fl High No November 10 te mean 97.8 informati 2016 6:25 corpuscul on in AM ar volume source [Entitic data volume] by Automated count Monocytes 0.1 - 1.0 K/mm3 Normal No November 10 informati 2016 6:25 [#/volume on in AM ] in source Blood by data Automated count Monocytes 1.7 - 9.3 % Normal No November 10 /100 informati 2017 6:25 leukocyte on in AM s in source Blood by data Automated count Platelet 7.4 - fl Normal No November 10 mean 10.4 informati 2017 6:25 volume on in AM [Entitic source volume] data in Blood by Automated count Platelets 142 - 424 K/mm3 Low No November 10 informati 2017 6:25 [#/volume on in AM ] in source Blood data Erythrocy 4.6 - 6.2 M/mm3 Low No November 10 jennyfer informati 2017 6:25 [#/volume on in AM ] in source Amniotic data fluid Erythrocy 11.5 - % Normal No November 10 te 17.5 informati 2016 6:25 distribut on in AM ion width source [Entitic data volume] by Automated count Leukocyte 4.8 - K/MM3 Low No November 10 s 10.8 informati 2016 6:25 [#/volume on in AM ] in source Blood data Basic metabolic panel in Blood Observa Value Referen Units Interpr Notes Date tion ce etation Range Urea 7 - 18 mg/dL Low No November 10 nitrogen informati 2016 6:25 [Mass/vol on in AM ume] in source Serum or data Plasma Calcium 8.5 - mg/dL Low No November 10 [Mass/vol 10.1 informati 2016 6:25 ume] in on in AM Serum or source Plasma data Chloride 98 - 107 mmoL/L Low No November 10 [Moles/vo informati 2016 6:25 lume] in on in AM Serum or source Plasma data Carbon 21.0 - mmoL/L Normal No November 10 dioxide, 32.0 informati 2016 6:25 total on in AM [Moles/vo source lume] in data Serum or Plasma Creatinin 0.70 - mg/dL Low No November 10 e 1.30 informati 2016 6:25 [Mass/vol on in AM ume] in source Serum or data Plasma Creatinin 50 - 200 ML/MIN Normal No November 10 e renal informati 2016 6:25 clearance on in AM source predicted data by Cockcroft -Gault formula Estimated >60 ML/MIN No REFERENCE November 10 informati RANGE: 2017 6:25 glomerula on in >60 AM r source ML/MIN/1. filtratio data 73 SQUARE n rate METERSIf (GF this patient is -A merican, then multiply theresult by 1.210. Glucose 74 - 106 mg/dL Low No November 10 [Mass/vol informati 2016 6:25 ume] in on in AM Serum or source Plasma data Potassium 3.5 - 5.1 mmoL/L Low No November 10 informati 2016 6:25 [Moles/vo on in AM lume] in source Serum or data Plasma Sodium 136 - 145 mmoL/L Low No November 10 [Moles/vo informati 2016 6:25 lume] in on in AM Serum or source Plasma data Cobalamin (Vitamin B12) [Mass/volume] in Serum Observa Value Referen Units Interpr Notes Date tion ce etation Range Cobalamin 211 - 946 pg/mL High Performed November 10 (Vitamin at: CB 2017 1:00 B12) - [facility] AM [Mass/vol ume] in [place] [address] Serum 0 [place], [place] [id number] Econometrics Professor: Lowell Guzman PhD, Phone: [phone] Iron and TIBC Observa Value Referen Units Interpr Notes Date tion ce etation Range Iron 250 - 450 ug/dL Low No November 10 binding informati 2016 1:00 capacity on in AM [Mass/vol source ume] in data Serum or Plasma Iron 111 - 343 ug/dL Low No November 10 binding informati 2016 1:00 capacity. on in AM unsaturat source ed data [Mass/vol ume] in Serum or Plasma Iron 38 - 169 ug/dL No Performed November 10 [Mass/vol informati at: CB 2016 1:00 ume] in on in - [facility] AM Serum or source Plasma data [place] [address] [address] [place], [place] [id number] Econometrics Professor: Lowell Guzman PhD, Phone: [phone] Iron 15 - 55 % High No November 10 saturatio informati 2016 1:00 n [Mass] on in AM in Serum source or Plasma data Folate [Mass/volume] in Serum or Plasma Observa Value Referen Units Interpr Notes Date tion ce etation Range Folate >3.0 ng/mL No A serum November 10 [Mass/vol informati folate 2016 1:00 ume] in on in concentra AM Serum or source tion of Plasma data less than 3.1 ng/mL isconside red to represent clinical deficienc y. PSA Total+% Free Observa Value Referen Units Interpr Notes Date tion ce etation Range Prostate N/A ng/mL No Fatimah November 10 Specific informati ECLIA 2017 1:00 Ag Free on in [facility] AM [Mass/vol source gy. ume] in data Serum or Plasma Prostate . % No The table November 10 Specific informati below 2017 1:00 Ag on in lists the AM Free/Pros source vora data probabili specific ty of Ag.total prostate in Serum cancer or Plasma formen with non-suspi cious REI results and total PSA between4 and 10 ng/mL, by patient age (Willard et al, KEITH 1998,279: 1542).% Free PSA 50-64 yr 65-75 yr0.00-10 .00% 56% 55%10.01- 15.00% 24% 35%15.01- 20.00% 17% 23%20.01- 25.00% 10% 20%>25.00 % 5% 9%Please note: Willard et al did not make specificr ecommenda tions regarding the use ofpercent free PSA for any other populatio nof men.Perfo rmed at: - [facility] [place] [address] [address] [place], [place] [id number] Econometrics Professor: Lowell Guzman PhD, Phone: [phone] Prostate 0.0 - 4.0 ng/mL No Fatimah November 10 specific informati ECLIA 2016 1:00 Ag on in methodolo AM [Mass/vol source gy.Accord ume] in data ing to Serum or the Plasma [facility] on, Serum PSAshould decrease and remain at undetecta ble levels afterradi tarun prostatec yamila. The AUA defines biochemic alrecurre nce as an initial PSA value 0.2 ng/mL or greaterfo llowed by a subsequen t confirmat ory PSA value 0.2 ng/mLor greater. Values obtained with different assay methods orkits cannot be used interchan geably. Results cannot beinterpr eted as absolute evidence of the presence or absenceof malignant disease.
--- OUTSIDE RECORDS SUMMARY | 2016-11-28 20:16 | External Medical Summary Rpt ---
Author Author DAMON Quinn, [employer] Address Unknown Phone Unavailable [...] Date tion ce etation Range COMMENTS TO DIRECTOR [employer]: PLEASE CALL PHARMACY WITH TROUGH LEVEL [employer] [...] 37.0 - % Normal No November 11 jenynfer/100 80.0 informati 2016 6:20 leukocyte on in [...] Date tion ce etation Range COMMENTS TO DIRECTOR [employer]: POST TRANSFUSION Hematocri 42.0 - % Low [...] source source source 17 data data data [id number] prepara O tion POSRELE [Type] ASED 7 Pato,Luca piedad Blood product special preparation [Type] Observa Value Referen Units Interpr Notes Date ti ce etation Range Blood BLOOD No No No BLOOD November 10 product UNIT informa informa informa UNIT # 2017 RELEASE tion in tion in in : W0382 9:46 AM special source source source 17 data data data [id number] prepara RELEASE tion D [Type] 7Boyers ,Lucind [...] B12) - [facility] AM [Mass/vol ume] in [place] [address] Serum 0 [place], [place] [id number] Harvester Operator: Lowell Guzman PhD, Phone: [phone] Iron and TIBC Observa Value Referen [...] [facility] AM Serum or source Plasma data [place] [address] [address] [place], [place] [id number] Harvester Operator: Lowell Guzman PhD, Phone: [phone] Iron 15 - 55 % High [...] populatio nof men.Perfo rmed at: - [facility] [place] [address] [address] [place], [place] [id number] Harvester Operator: Lowell Guzman PhD, Phone: [phone] Prostate 0.0 - 4.0 ng/mL No Fatimah November 10 specific informati ECLIA 2016 1:00 Ag on in methodolo AM [Mass/vol source gy.Accord ume] in data ing to Serum or the Plasma [facility] on, Serum PSAshould decrease [...]
[2016-11-28 23:00] VITALS: BP 108/66
[2016-11-28 23:12] VITALS: BP 108/66
[2016-11-29] VITALS (7 sets, daily range): BP systolic 100–139; BP diastolic 51–80
--- NOTE | 2016-11-29 06:12 | RADIOLOGY REPORT PS360 ---
CHEST-AP VIEW ONLY HISTORY: Shortness of breath reported syncope ORDERING PHYSICIAN: Darius Kaufman MD PATIENT AGE: 76 years COMPARISON: 11/12/2016 FINDINGS: The cardiomediastinal silhouette and pulmonary vascularity are within normal limits. Patchy density is present in the right upper lung medially may be due to an area of infiltrate or underpenetration. Upright PA and lateral chest may be of further value. The remaining lungs are clear. There is an old left eighth rib fracture. Previously noted PICC line is no longer apparent IMPRESSION: Possible infiltrate in the right suprahilar region which may be confirmed with upright PA and lateral chest.
[2016-11-29 06:56] LABS: LYMPH # 0.9 K/mm3 (0.7-4.5); LYMPH % 32.1 % (10-50)
--- NOTE | 2016-11-29 07:41 | HISTORY AND PHYSICAL REPORT ---
Demographics: Admit date: 11/28/16 Chief complaint: Syncope PRIMARY DIAGNOSIS: HYPONATREMIA Allergies: Coded Allergies: Penicillins (Mild, 02/04/16) History of present illness: History of present illness: 76-year-old white male, recently discharged from the swing bed at this facility because of Streptococcus bacteremia, severe pneumonia, bacterial conjunctivitis with vision loss, and been at home with his daughter over the past week and has been relatively improved. He has a long history of alcoholism but denies that this has become a problem for him again, but had an episode where he was unable to be aroused by his family and "passed out", and was brought to the emergency department where he was found to be awake and alert but have significant electrolyte abnormalities of the 120 on his sodium levels. Admitted to hospital for further evaluation, neurologic evaluation and correction of his hyponatremia. Of note chest x-ray showed developing infiltrate new since admission last time. Past medical history: Family HX Diabetes No CAD No Hypertension Yes Hyperlipidemia No Cancer No TB No Immunization HX DT/Tetanus > 10 YRS Pneumonia Refuses TB Test in last year Yes Result Negative General CAD? No Angina: No [place]: No Hypertension? No Hyperlipidemia? No CHF? No DVT? No PE? No COPD? No Asthma? No Anemia? No GERD? No Gastric ulcers? No GI Bleed? No Hernia? No Thyroid Problems? No Hypothyroidism? No CVA? No Seizures? No Diabetes? No Renal Insuffiency? No UTI? No Stones? No BPH? No GB Disease: No Nephritic Syndrome? No Asplenia? No Hepatitis? No Sickle Cell Disease? No Arthritis? No Migraines? No Cataracts? Yes Glaucoma? No MRSA? No HIV? No TB? No Anxiety? No Depression? No Cancer? No More? Yes Additional hx: ETOH DEPENDANCE - BEER Past Surgical HX Previous Surgery?Y CATARACT RIGHT EYE Current home meds: Active Scripts Erythromycin (Erythromycin Ophth Oint 3.5GM Tube) 0.25 GM OP TID #1 % Ref 1 Prov: 11/24/16 PREDNISOLONE ACETATE (Prednisolone Acetate) 2 DROP OP TID #1 BOT Ref 1 Prov: 11/24/16 Reported Medications Prednisolone Acetate (Prednisolone Acet 1% Ophth Soln 5ML) 1 DROP OP TID #5 Discontinued Reported Medications No Home Medications (NO HOME MEDICATIONS) 1 EACH XX ONCE Social Hx: Smoking HX Tobacco No Type SNUFF Packs/day < 1 PACK Alcohol Alcohol: Yes Hx of Drug Use Drug Use? No Patien't marital status is single Patient's support system is fair Review of systems: Constitutional malaise, weakness. No: fever. Respiratory No: no symptoms reported. Cardiovascular No no symptoms reported Gastrointestinal/Abdominal nausea, poor appetite, poor fluid intake Genitourinary No: no symptoms reported. Musculoskeletal No: no symptoms reported. Neurological Yes: see HPI. Exam: Lab data for last 24 hours: Laboratory Tests 11/29/16 0640: WBC 2.6 L, RBC 3.01 L, Hgb 10.0 L, Hct 30.2 L, MCV 100.4 H, RDW 16.4, Plt Count 218, MPV 6.6 L, Gran % 49.1, Gran # 1.3, Lymphocytes % 32.1, Monocytes % 11.4 H, Eosinophils % 6.7, Basophils % 0.8, Lymphocytes # 0.9, Monocytes # 0.3, Eosinophils # 0.2, Basophils # 0.0, PUBS MCHC 33.1, MCH 33.2 H 11/29/16 0030: Creatine Kinase 30 L, CK-MB (CK-2) Rel Index 2.0, CK and CKMB Interp 0.6, Troponin I < 0.02 11/28/16 1820: Sodium 120 L, Potassium 3.7, Chloride 87 L, Carbon Dioxide 24, BUN 7, Creatinine 0.7 L, Estimated Creat Clear 67, Estimated GFR (MDRD) 110, Glucose 90, Calcium 8.6, Total Bilirubin 0.7, AST 54 H, ALT 60, Alkaline Phosphatase 91 , Creatine Kinase 32 L, CK-MB (CK-2) Rel Index 1.6, CK and CKMB Interp 0.5, Troponin I < 0.02, Total Protein 7.2, Albumin 2.8 L, Globulin 4.4 H, Albumin/ Globulin Ratio 0.6 L, WBC 4.0 L, RBC 3.33 L, Hgb 11.1 L, Hct 33.7 L, MCV 101.0 H, RDW 16.5, Plt Count 289, MPV 7.0 L, Gran % 33.7 L, Gran # 1.3, Lymphocytes % 48.4, Monocytes % 9.8 H, Eosinophils % 7.2, Basophils % 0.9, Lymphocytes # 1.9, Monocytes # 0.4, Eosinophils # 0.3, Basophils # 0.0, PUBS MCHC 33.1, MCH 33.4 H Admission vital signs: 1ST Vital Signs Result Date Time Pulse Ox 92 11/28 1752 B/P 99/53 11/28 175 Pulse 71 11/28 1753 Resp 18 11/28 175 O2 Delivery ROOM AIR 11/28 2300 Temp 99.4 11/28 2300 Additional information: Patient is awake, pleasant. Reports that his vision is improving and that he has good vision of shadows and light/dark sensations on both eyes now. Lungs have good air movement, some rhonchi in the upper lobes bilaterally. Abdomen is soft, heart rate regular. No edema. Able to move all 4 extremities well. Plan: Problem List 1. Syncope 2. Hyponatremia 3. Lobar pneumonia Plan: Free water restriction, normal saline supplementation. Follow sodium levels closely. Begin ceftriaxone and azithromycin therapy for community acquired pneumonia. at 0741
--- NOTE | 2016-11-29 09:52 | PHARMACY CLINIC NOTE ---
Patient Demographics Patient Demographics Admission date: 11/28/16 Date: 11/29/16 Time: 09 Allergies Coded Allergies: Penicillins (Mild, 02/04/16) HEIGHT- FT: 5 IN: 8.00 K.999 VTE General Information Labs: Laboratory Tests 11/29 11/28 0640 1820 Hematology Hgb (14.1 - 18.0 g/dL) 10.0 L 11.1 L Hct (42.0 - 52.0 %) 30.2 L 33.7 L Plt Count (142 - 424 K/mm3) 218 289 Disclaimer The following section includes nursing documentation that has been pulled in for pharmacy review. Patient's VTE score: 1 Patient's VTE Risk: VERY LOW RISK Clinical trial participant? No VTE prophylaxis NQF [id number] VTE prophylaxis ordered? Yes Type of prophylaxis/treatment: ATIF at 0952
[2016-11-29 10:27] LABS: NEUTROPHILS 54 % (42-76)
[2016-11-30] VITALS (8 sets, daily range): BP systolic 113–154; BP diastolic 60–80
--- NOTE | 2016-11-30 08:07 | ACUTE CARE PROGRESS NOTE (QUA) ---
Progress Notes Subjective Date 11/30/16 Time 0804 Patient/family reports: feeling better, no complaints (good po) Nursing reports: alert Objective Findings Last VS-Temp:97.4 B/P:154/78 Pulse:71 Resp:18 SaO2:100 ROOM AIR Last weight lbs:97 oz:0 K.999 Method:Bed Scales Assessment/Plan Problem List 1. Syncope Qualifiers: Syncope type: unspecified Qualified Code: R55 - Syncope and collapse 2. Hyponatremia 3. Lobar pneumonia Patient condition Improving, Did have low glucose this am. Corrected now and feels better. Plan: continue current care, replace sodium. check glucose This inpt stay is expected to cross 2 MNs from start of care Yes at 0807
[2016-12-01 00:21] VITALS: BP 137/70
[2016-12-01 04:15] VITALS: BP 126/71
[2016-12-01 07:29] LABS: HEMOGLOBIN 10.6 g/dL (14.1-18.0); LYMPH % 37.5 % (10-50)
[2016-12-01] MEDS ORDERED: ZITHROMAX Z-PA250 M2 PO (08:16)
--- NOTE | 2016-12-01 08:17 | DISCHARGE SUMMARY STANDARD ---
Demographics Admit date: 11/28/16 Discharge date: 12/01/16 History of present illness History of present illness 76-year-old white male, recently discharged from the swing bed at this facility because of Streptococcus bacteremia, severe pneumonia, bacterial conjunctivitis with vision loss, and been at home with his daughter over the past week and has been relatively improved. He has a long history of alcoholism but denies that this has become a problem for him again, but had an episode where he was unable to be aroused by his family and "passed out", and was brought to the emergency department where he was found to be awake and alert but have significant electrolyte abnormalities of the 120 on his sodium levels. Admitted to hospital for further evaluation, neurologic evaluation and correction of his hyponatremia. Of note chest x-ray showed developing infiltrate new since admission last time. Hospital Course Hospital Course: Patient was admitted, placed on normal saline, fluid restriction, sodium improved slightly. Looking back at his labs, he is chronically hyponatremic, and this does not appear to impact his functioning much if any. He was given a typical coverage for his new infiltrate, and this seemed to help his cough. 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 This morning is doing great, eating well, doing all his functional care activities. Lung examination is clear, heart rate regular, abdomen is soft nontender, neurologically intact. He discharged home today on a Z-Yoshi, continued eye drops and close followup at our office. Instructed to drink 2 bottles of salt-containing sport beverage daily Discharge diagnoses Problem List 1. Syncope 2. Hyponatremia 3. Lobar pneumonia Medications Medications: Discharge meds are as noted. Follow up Follow up in office in: 4 DAYS with: ADY SHELLEY APRN at 0816
[2016-12-01 08:56] VITALS: BP 126/71
[2016-12-01 08:58] VITALS: BP 126/71
[2016-12-01 10:41] LABS: NEUTROPHILS 43 % (42-76)
[2016-12-02] MEDS ORDERED: THIAMINE HCL100 MG PO (08:00)
== END 2016-12-01 09:30 | disposition home health service (06) ==
LOC: ER 17:50 → 2ND 20:11 → ER 20:11 → 2ND 20:34
PROVIDERS: Emergency Medicine; Internal Medicine Adolescent Medicine
DX: R55 Syncope and collapse (principal); E87.1 Hypo-osmolality and hyponatremia; J18.9 Pneumonia, unspecified organism
CPT/HCPCS: G0378; J0456

== ENCOUNTER 2016-12-01 21:00 | Inpatient (IN) | payer MEDICARE ==
[~2016-12-01] VITALS: Ht 172.7 cm; Wt 45.4 kg
[~2016-12-01 21:00] MED LIST changes: +PREDNISOLO OP; +ZITHROMAX Z-PA250 M2 PO
[2016-12-01 21:25] VITALS: BP 131/99
[2016-12-01 21:39] LABS: LYMPH # 2.6 K/mm3 (0.7-4.5); LYMPH % 50.1 % (10-50)
--- NOTE | 2016-12-01 21:41 | Emergency Room Report ---
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 N Clinical Suspician of Infection? Y Mental Status: 3 - Acutely Altered Sepsis Risk:Severe Sepsis Risk Have you (or family members/close friends) recently traveled outside the [place]? N If Yes, where/when: Have you had exposure to infectious disease within the past month? N TB? Other? Specify: Source patient, RN notes reviewed, family, EMS, old records Exam Limitations clinical condition Comment pt with recent d/c this am with resolving pneumonia and hyponatremia- suddendly nonresp and has bilat jerking and staring off consistent with sz - Cardiac Chest Pain Chest pain indicative of cardiac No Timing/Duration this evening Severity moderate ALLERGIES Coded Allergies: Penicillins (Mild, 12/01/16) Home Medications Active Scripts Erythromycin (Erythromycin Ophth Oint 3.5GM Tube) 0.25 GM OP TID #1 % Ref 1 Prov: 11/24/16 PREDNISOLONE ACETATE (Prednisolone Acetate) 2 DROP OP TID #1 BOT Ref 1 Prov: 11/24/16 Azithromycin (Zithromax) 250 MG PO DAILY #6 TAB Prov: 12/01/16 Discontinued Reported Medications No Home Medications (NO HOME MEDICATIONS) 1 EACH XX ONCE History Medical History General CAD? No Angina: No DC: No Hypertension? No Hyperlipidemia? No CHF? No DVT? No PE? No COPD? No Asthma? No Anemia? No GERD? No Gastric ulcers? No GI Bleed? No Hernia? No Thyroid Problems? No Hypothyroidism? No CVA? No Seizures? No Diabetes? No Renal Insuffiency? No End Stage Renal Disease? No UTI? No Stones? No BPH? No GB Disease: No Nephritic Syndrome? No Asplenia? No Hepatitis? No Sickle Cell Disease? No Arthritis? No Migraines? No Cataracts? Yes Glaucoma? No MRSA? No HIV? No TB? No Anxiety? No Depression? No Cancer? No More? Yes Additional hx: ETOH DEPENDANCE - BEER Immunization Hx DT/Tetanus > 10 YRS Pneumonia Refuses Surgical Hx Previous Surgery?Y CATARACT RIGHT EYE Family History Family Hx Diabetes No CAD No Hypertension Yes Hyperlipidemia No Cancer No TB No Social History Smoking Hx Smoker: Unknown if Ever Smoked Tobacco: No Packs/day < 1 Pack Alcohol Alcohol: Yes Drugs none Review of Systems All Other Systems Reviewed and Negative Constitutional see HPI, denies fever, other Eyes denies drainage ENT denies: ear pain, epistaxis, throat pain. Respiratory denies cough, denies shortness of breath, denies wheezing Cardiovascular denies chest pain, denies palpitations, denies syncope Gastrointestinal denies diarrhea, denies vomiting Genitourinary denies: hematuria. Musculoskeletal denies joint swelling, denies neck pain Skin denies rash Psychiatric/Neurological see HPI, denies headache, seizure, other Physical Exam Vital Signs Vital Signs Date Time Temp Pulse Resp B/P Pulse O2 O2 Flow FiO2 Ox Delivery Rate 12/01 2234 96 18 143/81 100 15 12/01 2154 96.7 128 17 153/94 100 15 12/01 2154 127 30 153/94 100 15 12/01 2125 96.7 126 30 131/99 99 15 12/01 2110 18 - WBC >12,000 or <4,000 or 10% bands? 2 or more SIRS Criteria Met? B/P:143/81 MAP:109 Creatinine >2.0? UA output<0.5ml/kg/hr for 2 hrs? Platelet count >100,000? Lactate >2.0mmol/1? INR >1.2 or PTT > than 60 sec? Evidence of Organ Dysfunction? Provider documented clinical suspician of infection? Y Sepsis Criteria Count: 4 Sepsis Risk: Severe Sepsis Risk General Appearance no apparent distress Eye Exam Comment chronic eye changes Ear, Nose, Throat dry mm and no tongue biting Neck non-tender Respiratory Status No: respiratory distress. Lung Sounds bilateral: decreased breath sounds. Cardiovascular tachycardia, systolic murmur, gallop/S4 Peripheral Pulses Pulses normal Yes Gastrointestinal soft Extremities normal inspection Male Genitalia normal genitalia Nurse present during exam? Yes Neurologic no posturing and no focal def- had sz and then postictal Reflexes Reflexes normal No Mental status altered mental status Skin intact Medical Decision Making LABS/Meds/Orders Pt receiving controlled substance in ED? No Results/Orders Laboratory Tests 12/01/16 2100: Sodium 124 L, Potassium 3.9, Chloride 92 L, Carbon Dioxide 26, BUN 4 L, Creatinine 0.7 L, Estimated Creat Clear 52, Estimated GFR (MDRD) 110, Glucose 137 H, Calcium 8.6, Total Bilirubin 0.6, AST 41 H, ALT 46, Alkaline Phosphatase 85, Creatine Kinase 39, CK-MB (CK-2) Rel Index 1.5, CK and CKMB Interp 0.6, Troponin I 0.02, Total Protein 7.3, Albumin 2.9 L, Globulin 4.4 H, Albumin/Globulin Ratio 0.7 L, WBC 5.2, RBC 3.29 L, Hgb 11.0 L, Hct 32.9 L, MCV 100.1 H, RDW 16.2, Plt Count 259, MPV 7.8, Gran % 33.6 L, Gran # 1.8, Lymphocytes % 50.1 H, Monocytes % 8.2, Eosinophils % 6.9, Basophils % 1.1, Lymphocytes # 2.6, Monocytes # 0.4, Eosinophils # 0.4, Basophils # 0.1, PUBS MCHC 33.5, MCH 33.6 H Current Medication Orders Sig/Lorna Start time Last Medication Dose Route Stop Time Status Admin Phenytoin Sodium 600 MG ONCE ONE 12/01 2244 AC Sodium Chloride 100 ML IV 12/01 2305 Metoprolol Tartrate 2.5 MG ONCE ONE 12/01 2214 DC 12/01 IV 12/02 2215 2226 Sodium Chloride 1,000 ML .Q1H1M 12/01 2214 AC 05 IV 12/01 2315 2227 Sodium Chloride 10 ML PRN PRN 12/01 2214 AC IV 12/02 220 Metoprolol Tartrate 0 .STK-MED ONE 12/02 2211 DC IV Sodium Chloride 1,000 ML .STK-MED ONE 12/01 2209 DC IV Sodium Chloride 10 ML PRN PRN 12/01 2129 AC IV 12/02 2120 Lorazepam 0.5 MG ONCE ONE 12/01 2114 DC 12/01 IV 12/01 Lorazepam 0 .STK-MED ONE 12/01 2106 DC .ROUTE Orders Procedure Date/time Status DIET-NOTHING BY MOUTH 12/02 B Active Decision to admit 12/01 2242 Active CHEST-AP VIEW ONLY 12/01 2142 Active 12 LEAD EKG-NATA (INITIAL) 12/01 2121 Active ELECTROCARDIOGRAM REQUEST 12/[address] SCAN REQ 12/01 2121 Complete IV SALINE LOCK 12/01 2121 Active URINARY CATHETER INSERT 12/01 2121 Active CULTURE, BLOOD 12/01 2121 Active URINALYSIS/COMPLETE 12/01 2121 Active LACTIC ACID 12/01 2121 Active COMPLETE METABOLIC PANEL 12/01 2121 Complete CBC WITH AUTO DIFF 12/01 2121 Complete CARDIAC ENZYMES 12/01 2121 Complete CM/EKG CM/EKG 1 Monitor Rhythm Atrial Flutter EKG LBBB CM/EKG 2 Monitor Rhythm Normal Sinus Rhythm EKG compared w/(date of old), non-spec. ST/Twave chgs XRAY/CT/US XRAY/CT/US 1 XRAY chest XR interpretation by reviewed by me Xray Results normal/NAD XRAY/CT/US [address] interpretation by discussed w/radiologist Time results known: 2199 CT Results abnormal (chronic changes) Departure Departure Time of Disposition 2248 Disposition Still a Patient Clinical Impression Primary Impression: Seizure Secondary Impressions: LBBB (left bundle branch block) Condition STABLE ED Critical Care Critical Care Yes Time spent 30-74 min Vital system(s) involved: Central Nervous System I was present at bedside for Coordinating pt's care, Interpreting EKGs/Strips , Reviewing lab results, Reviewing old records, Discussing pt condition, For re- examinations, Examining radiographs at 2255
--- OUTSIDE RECORDS SUMMARY | 2016-12-01 21:47 | External Medical Summary Rpt ---
Author Author , Organization [employer] Address Unknown Phone Unavailable Purpose Continuity of Care Document - through 2016 Problems Code Diagnosis DOS Provider Status D64.9 ANEMIA, UNSPECIFIED D69.6 THROMBOCYTO PENIA, UNSPECIFIED D72.819 DECREASED WHITE BLOOD CELL COUNT, UNSPECIFIED E87.1 HYPO-OSMOLA LITY AND HYPONATREMI A R55 SYNCOPE AND COLLAPSE
--- OUTSIDE RECORDS SUMMARY | 2016-12-01 21:48 | External Medical Summary Rpt ---
Demographics Preferred Language Pashto Marital Status Unknown Denominational Affiliation Unknown Race Unknown Ethnic Group Unknown Author Author , Organization [employer] Address Unknown Phone Unavailable Purpose Continuity of Care Document - through 2016 Immunization No patient found.
--- OUTSIDE RECORDS SUMMARY | 2016-12-01 21:48 | External Medical Summary Rpt ---
Demographics Preferred Language Vietnamese Marital Status Unknown Hoahaoism Affiliation Unknown Race Unknown Ethnic Group Unknown Author Author , Organization [employer] Address Unknown Phone Unavailable Purpose Continuity of Care Document - through 2016 Immunization No patient found.
--- NOTE | 2016-12-01 21:52 | RADIOLOGY REPORT PS360 ---
CT HEAD WITHOUT CONTRAST CT BONE WINDOWS included ORDERING PHYSICIAN : Alison Landin MD PATIENT AGE: 76 years GENDER: Male PROCEDURE: Routine axial images head with brain & bone windows without contrast HISTORY: NEW SZ COMPARISON: CT head without contrast 11-28-16 and 11/09/2016 CT head without contrast FINDINGS: No acute intracranial findings. No significant change since previous study No hemorrhage. No mass effect or mass lesion. No subdural nor extra-axial collection. Diffuse cerebral atrophy. The generous lateral ventricles reflect the cerebral atrophy. Unchanged Subtle Low-density periventricular deep white matter reflecting chronic small vessel deep white matter changes The posterior fossa appear satisfactory with only minor atrophy suggest here . Skull intact. Mild mucosal thickening at the ethmoid air cell on left trace mucosal thickening inferior maxillary sinuses. Right mastoid air cell with several opacified air cells toward right mastoid tip. Similar to previous studies. Generous cerumen at the right external auditory canal. Left mastoid appears satisfactory,.. Middle ear & IACs are unremarkable bilateral. IMPRESSION: No acute intracranial findings. No changes recent previous studies Cerebral atrophy. Mild chronic small vessel deep white matter changes cerebral hemisphere
--- OUTSIDE RECORDS SUMMARY | 2016-12-01 22:51 | External Medical Summary Rpt ---
Demographics Preferred Language Tajik Marital Status Unknown Baptism Affiliation Unknown Race Unknown Ethnic Group Unknown Author Author , Organization [employer] Address Unknown Phone Unavailable Purpose Continuity of Care Document - through 2016 Immunization No patient found.
--- OUTSIDE RECORDS SUMMARY | 2016-12-01 22:51 | External Medical Summary Rpt ---
Demographics Preferred Language Japanese Marital Status Unknown Evangelical Affiliation Unknown Race Unknown Ethnic Group Unknown Author Author , Organization [employer] Address Unknown Phone Unavailable Purpose Continuity of Care Document - through 2016 Immunization No patient found.
[2016-12-02] VITALS (8 sets, daily range): BP systolic 105–131; BP diastolic 57–84
[2016-12-02 03:38] LABS: HEMOGLOBIN 10.1 g/dL (14.1-18.0); LYMPH # 0.6 K/mm3 (0.7-4.5)
--- NOTE | 2016-12-02 07:17 | HISTORY AND PHYSICAL REPORT ---
Demographics: Admit date: 12/02/16 Chief complaint: Mental status change/unresponsiveness PRIMARY DIAGNOSIS: NEW ONSET SEIZURES Allergies: Coded Allergies: Penicillins (Mild, 12/01/16) History of present illness: History of present illness: 76-year-old white male with long history of alcoholism and recent history of sepsis, bacterial conjunctivitis as blindness, lobar pneumonia and significant malnutrition/protein calorie malnutrition who was discharged home from the hospital yesterday after meeting admitted for hyponatremia and pneumonia. He was doing well, and was oriented and alert on discharge. His daughter found him in his home unresponsive with lots of jerking motions, transported to the emergency department where he had witnessed tonic-clonic jerking consistent with seizure activity. Was given Ativan which stopped this activity and he was admitted to the hospital after being treated with intravenous phenytoin. This morning he is essentially unresponsive except to very deep tactile stimuli. He has tonic-clonic movements of his arms and legs that were witnessed by me this morning that lasted about 15 seconds. Past medical history: Family HX Diabetes No CAD No Hypertension Yes Hyperlipidemia No Cancer No TB No Immunization HX DT/Tetanus > 10 YRS Pneumonia Refuses TB Test in last year Yes Result Negative General CAD? No Angina: No HI: No Hypertension? No Hyperlipidemia? No CHF? No DVT? No PE? No COPD? No Asthma? No Anemia? No GERD? No Gastric ulcers? No GI Bleed? No Hernia? No Thyroid Problems? No Hypothyroidism? No CVA? No Seizures? Yes Diabetes? No Renal Insuffiency? No UTI? No Stones? No BPH? No GB Disease: No Nephritic Syndrome? No Asplenia? No Hepatitis? No Sickle Cell Disease? No Arthritis? No Migraines? No Cataracts? Yes Glaucoma? No MRSA? No HIV? No TB? No Anxiety? No Depression? No Cancer? No More? Yes Additional hx: ETOH DEPENDANCE - BEER Past Surgical HX Previous Surgery?Y CATARACT RIGHT EYE Current home meds: Active Scripts Erythromycin (Erythromycin Ophth Oint 3.5GM Tube) 0.25 GM OP TID #1 % Ref 1 Prov: 11/24/16 PREDNISOLONE ACETATE (Prednisolone Acetate) 2 DROP OP TID #1 BOT Ref 1 Prov: 11/24/16 Azithromycin (Zithromax) 250 MG PO DAILY #6 TAB Prov: 12/01/16 Social Hx: Smoking HX Tobacco No Packs/day < 1 PACK Are you/the child exposed to second-hand smoke: Yes Alcohol Alcohol: Yes How much do you drink More Than 10 Drinks/Day For how long Longer Than 5 Years When was your last drink Greater Than 72 Hours Ago Comment FAMILY STATED "HE HAS NOT HAD A DRINK SINCE BEFORE MOTHER'S DAY." Hx of Drug Use Drug Use? No Patien't marital status is single Patient's support system is fair Review of systems: Constitutional malaise. No: fever. Respiratory No: no symptoms reported. Cardiovascular No no symptoms reported Gastrointestinal/Abdominal No no symptoms reported Genitourinary No: no symptoms reported. Musculoskeletal No: no symptoms reported. Neurological Yes: see HPI. Comment: Review of systems not obtainable from patient given obtundation. No family present at bedside this morning. Exam: Lab data for last 24 hours: Laboratory Tests 12/02/16 0330: Lactic Acid 1.2 12/02/16 0330: Sodium 124 L, Potassium 3.7, Chloride 91 L, Carbon Dioxide 25, BUN 4 L, Creatinine 0.5 L, Estimated Creat Clear 81, Estimated GFR (MDRD) 162, Glucose 187 H, Calcium 7.9 L, WBC 5.4, RBC 3.05 L, Hgb 10.1 L, Hct 30.3 L, MCV 99.4 H, RDW 16.0, Plt Count 193, MPV 8.0, Gran % 78.9, Gran # 4.2, Lymphocytes % 11.0, Monocytes % 8.2, Eosinophils % 1.4, Basophils % 0.4, Lymphocytes # 0.6 L, Monocytes # 0.4, Eosinophils # 0.1, Basophils # 0.0, PUBS MCHC 33.3, MCH 33.1 H 12/01/16 2240: Lactic Acid 3.9 H 12/01/16 2100: Sodium 124 L, Potassium 3.9, Chloride 92 L, Carbon Dioxide 26, BUN 4 L, Creatinine 0.7 L, Estimated Creat Clear 52, Estimated GFR (MDRD) 110, Glucose 137 H, Calcium 8.6, Total Bilirubin 0.6, AST 41 H, ALT 46, Alkaline Phosphatase 85, Creatine Kinase 39, CK-MB (CK-2) Rel Index 1.5, CK and CKMB Interp 0.6, Troponin I 0.02, Total Protein 7.3, Albumin 2.9 L, Globulin 4.4 H, Albumin/Globulin Ratio 0.7 L, WBC 5.2, RBC 3.29 L, Hgb 11.0 L, Hct 32.9 L, MCV 100.1 H, RDW 16.2, Plt Count 259, MPV 7.8, Gran % 33.6 L, Gran # 1.8, Lymphocytes % 50.1 H, Monocytes % 8.2, Eosinophils % 6.9, Basophils % 1.1, Lymphocytes # 2.6, Monocytes # 0.4, Eosinophils # 0.4, Basophils # 0.1, PUBS MCHC 33.5, MCH 33.6 H Microbiology 12/02 2239 BLOOD: Anaerobic Blood Culture - RECD 12/02 2239 BLOOD: Aerobic Blood Culture - RECD 12/02 2239 BLOOD: Anaerobic Blood Culture - RECD 12/02 2239 BLOOD: Aerobic Blood Culture - RECD Admission vital signs: 1ST Vital Signs Result Date Time Resp 18 12/01 2109 Pulse Ox 99 12/01 2124 B/P 131/99 12/01 2124 O2 Flow Rate 15 12/01 2124 Temp 96.7 12/01 2124 Pulse 126 12/01 2124 O2 Delivery OXYGEN 12/02 0028 Additional information: Patient is markedly different neurologically over discharge yesterday. Sclera are clear than previous exams. Oropharynx is clear, no trauma. Patient unable to respond to cranial nerve exam but his face is overall symmetric. Has repetitive tonic-clonic movements of legs and arms, LEFT worse than RIGHT, although the RIGHT does have jerking motions as well. Heart rate regular, abdomen soft, lungs clear. No skin turgor or evidence of trauma. Plan: Problem List 1. Seizure 2. Syncope Plan: Check EEG. Check further labs, drug screen and heavy metal screen. Probable seizure based on significant cerebral atrophy from his alcoholism and overall nutritional compromise with significant protein calorie malnutrition. Phenytoin has been started. at 0717
--- NOTE | 2016-12-02 07:23 | PHARMACY CLINIC NOTE ---
Patient Demographics Patient Demographics Admission date: 12/02/16 Date: 12/02/16 Time: 720 Allergies Coded Allergies: Penicillins (Mild, 12/01/16) HEIGHT- FT: 5 IN: 8.00 K.360 VTE General Information Labs: Laboratory Tests 12/02 12/01 0330 2100 Hematology Hgb (14.1 - 18.0 g/dL) 10.1 L 11.0 L Hct (42.0 - 52.0 %) 30.3 L 32.9 L Plt Count (142 - 424 K/mm3) 193 259 Disclaimer The following section includes nursing documentation that has been pulled in for pharmacy review. Patient's VTE score: 1 Patient's VTE Risk: VERY LOW RISK Clinical trial participant? No VTE prophylaxis [id number] VTE prophylaxis ordered? Yes Type of prophylaxis/treatment: ATIF at 0723
[2016-12-02] MEDS ORDERED: THIAMINE HCL100 MG PO (08:00)
--- NOTE | 2016-12-02 08:08 | RADIOLOGY REPORT PS360 ---
CHEST-AP VIEW ONLY HISTORY: Shortness of breath with cough sob ORDERING PHYSICIAN: Grzegorz Box MD PATIENT AGE: 76 years COMPARISON: 11/28/2016 FINDINGS: Unremarkable cardiovascular structures. There is noted irregular opacities in the right suprahilar region is somewhat less apparent and may be due to some underlying atelectasis or summation artifact. Patchy density is now noted in the left upper lobe consistent with an area of infiltrate. No acute bony anomalies. IMPRESSION: 1. Patchy pneumonic infiltrate left upper lobe. 2. Right suprahilar atelectatic change versus summation artifact. May be confirmed with follow-up
[2016-12-02 08:10] LABS: URINE BILIRUBIN - DIPSTICK NEGATIVE (NEG); URINE BLOOD TRACE-INTACT (NEG)
[2016-12-02 08:30] LABS: AMPHETAMINES/METAMPHETAMINES NEGATIVE ng/mL (<1000)
[2016-12-03 04:00] VITALS: BP 106/54
--- NOTE | 2016-12-03 07:12 | ACUTE CARE PROGRESS NOTE (QUA) ---
Progress Notes Subjective Date 12/03/16 Time 0711 Note Patient overall has not improved, continues to be unresponsive except to deep tactile stimuli. Continues to have diffuse tonic-clonic movements throughout the day. Cardio pulmonary exam unchanged, abdomen soft, no facial asymmetry. Objective Findings Last VS-Temp:97.7 B/P:106/54 Pulse:85 Resp:12 SaO2:95 OXYGEN Last weight lbs:100 oz:0 K.360 Method:Bed Scales Assessment/Plan Problem List 1. Seizure 2. Syncope Patient condition Guarded Plan: continue current care, Check MRI - poor prognosis This inpt stay is expected to cross 2 MNs from start of care Yes at 0712
[2016-12-03 08:06] VITALS: BP 98/55
[2016-12-03 09:00] VITALS: BP 98/55
[2016-12-03 16:00] VITALS: BP 114/61
[2016-12-03 18:40] LABS: Arsenic, Blood 6 ug/L (2-23); Mercury, Blood None Detected ug/L (0.0-14.9)
--- NOTE | 2016-12-03 18:46 | RADIOLOGY REPORT PS360 ---
MRI-BRAIN W/O HISTORY: Since seizures, unresponsive, altered mental status, altered level consciousness SEIZURES, R/O CVA ORDERING PHYSICIAN: Grzegorz Box MD PATIENT AGE: 76 years COMPARISON: CT scan of 12/01/2016 TECHNIQUE: Standard multiplanar multiecho sequences are performed without contrast. FINDINGS: There is diffuse generalized atrophy. There is mild prominence of the ventricles likely related to the volume loss from the atrophy. No midline shift, mass effect, intracranial hemorrhage, or hydrocephalus is evident. Nonspecific periventricular and subcortical T2 white matter hyperintensities are present consistent with ischemic gliotic change from microvascular disease. There is slight increased T2 signal in the central aspect of the ned. This is isointense on T1 and does not demonstrate restricted diffusion likely due to an area of ischemic necrosis as opposed to osmotic demyelination syndrome. No acute infarction. No restricted diffusion. The cerebellopontine angles and cerebellum are unremarkable. Bilateral mastoid effusions are present. No sinus air-fluid level. IMPRESSION: 1. No definite acute intracranial pathology. No acute infarction 2. Atrophy with chronic ischemic changes. 3. Nonspecific slight increased T2 signal in the ned probably related to ischemic gliosis as opposed to osmotic demyelination syndrome. Please correlate clinically. 4. Bilateral mastoid effusions
[2016-12-03 19:37] VITALS: BP 123/64
[2016-12-03 20:55] VITALS: BP 123/64
[2016-12-04 03:58] VITALS: BP 105/62
[2016-12-04 06:48] LABS: HEMOGLOBIN 10.6 g/dL (14.1-18.0); LYMPH # 0.8 K/mm3 (0.7-4.5); LYMPH % 7.2 % (10-50)
[2016-12-04 07:58] VITALS: BP 111/62
[2016-12-04 08:11] VITALS: BP 111/62
--- NOTE | 2016-12-04 08:32 | ACUTE CARE PROGRESS NOTE (QUA) ---
Progress Notes Subjective Date 12/04/16 Time 0740 Note Patient is laying in bed, unresponsive to sternal rub. 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 Unresponsive. Rate and rhythm regular. LS clear with shallow respirations noted. Abdomen soft. Patient/family reports: no complaints Nursing reports: unresponsive Objective Findings Last VS-Temp:100.1 B/P:111/62 Pulse:97 Resp:28 SaO2:97 OXYGEN Last weight lbs:100 oz:0 K.360 Method:Bed Scales Reviewed: medications, vital signs, lab results Assessment/Plan Problem List 1. Seizure 2. Syncope Patient condition Deteriorating Plan: Palliative care. Will discuss Hospice referral with family later this morning This inpt stay is expected to cross 2 MNs from start of care Yes at 0832
--- NOTE | 2016-12-04 08:32 | ACUTE CARE PROGRESS NOTE (QUA) ---
Progress Notes Subjective Date 12/04/16 Time 0740 Note Patient is laying in bed, unresponsive to sternal rub. 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 Unresponsive. Rate and rhythm regular. LS clear with shallow respirations noted. Abdomen soft. Patient/family reports: no complaints Nursing reports: unresponsive Objective Findings Last VS-Temp:100.1 B/P:111/62 Pulse:97 Resp:28 SaO2:97 OXYGEN Last weight lbs:100 oz:0 K.360 Method:Bed Scales Reviewed: medications, vital signs, lab results Assessment/Plan Problem List 1. Seizure 2. Syncope Patient condition Deteriorating Plan: Palliative care. Will discuss Hospice referral with family later this morning This inpt stay is expected to cross 2 MNs from start of care Yes at 0832
[2016-12-04 09:30] LABS: NEUTROPHILS 87 % (42-76)
--- NOTE | 2016-12-04 13:13 | DISCHARGE SUMMARY STANDARD ---
Demographics Admit date: 12/02/16 Discharge date: 12/04/16 History of present illness History of present illness 76-year-old white male with long history of alcoholism and recent history of sepsis, bacterial conjunctivitis as blindness, lobar pneumonia and significant malnutrition/protein calorie malnutrition who was discharged home from the hospital yesterday after meeting admitted for hyponatremia and pneumonia. He was doing well, and was oriented and alert on discharge. His daughter found him in his home unresponsive with lots of jerking motions, transported to the emergency department where he had witnessed tonic-clonic jerking consistent with seizure activity. Was given Ativan which stopped this activity and he was admitted to the hospital after being treated with intravenous phenytoin. This morning he is essentially unresponsive except to very deep tactile stimuli. He has tonic-clonic movements of his arms and legs that were witnessed by me this morning that lasted about 15 seconds. Hospital Course Hospital Course: Patient was admitted to acute care. He was started on phenytoin for seizures and given PRN Ativan when indicated. Seizure activity has resolved; however he has progressively became less responsive. 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 Family was noted of his terminal status who elected for Hospice consultation. Patient was evaluated by Hospice who has agreed to accept him to their service. Discharge home with Hospice for comfort care measures. Discharge diagnoses Problem List 1. Seizure 2. Syncope Medications Medications: Discharge meds are as noted. Follow up Follow up in office in: n/a-end of life with: OTHER at 1786
[2016-12-04] MEDS ORDERED: ATIVAN0.5 MG PO (13:22)
[2016-12-04] MEDS ORDERED: MORPHINE S20 MG/1 ML PO (13:24)
[2016-12-04 13:58] VITALS: BP 111/62
[2016-12-04 14:45] LABS: Lead, Blood (Adult) 2
== END 2016-12-04 15:15 | disposition hospice, home (50) | DRG 58 ==
LOC: ER 21:00 → 2ND 22:46
PROVIDERS: Emergency Medicine; Internal Medicine Adolescent Medicine
DX: G37.2 Central pontine myelinolysis (principal); E43 Unspecified severe protein-calorie malnutrition; Z68.1 Body mass index [BMI] 19.9 or less, adult; R56.9 Unspecified convulsions; F10.20 Alcohol dependence, uncomplicated